=== PATIENT | male | born 1935 | race Asian ===

== ENCOUNTER 2016-11-25 07:35 | Outpatient (CLI) | payer MEDICARE, MEDICAID | END 2016-11-25 07:36 | disposition home or self-care (01) | LOC: LAB.WCP 07:35 | PROVIDERS: ATTEND Family Medicine | DX: R94.5 Abnormal results of liver function studies (principal) | CPT/HCPCS: 36415; 81599; 86317; 86704; 86803; 87340 ==

== ENCOUNTER 2016-12-06 16:52 | Emergency (ER) | payer OTHER, MEDICARE, MEDICAID ==
[2016-12-06] MEDS ORDERED: ACETAMINOPHEN 325 MG TABLET PO ONE (17:27)
[2016-12-06] MEDS ORDERED: ACETAMINOPHEN 325 MG TABLET PO STA (17:27)
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
--- NOTE | 2016-12-06 18:19 | XRAY Preliminary Report ---
Exam: XR Lumbar Spine 2 View IMPRESSION: No acute fracture or dislocation. Multilevel bulky anterior osteophytes, most likely due to DISH. [facility] SITE ID: [id number]
--- NOTE | 2016-12-06 18:21 | XRAY Preliminary Report ---
Exam: XR Thoracic Spine 2 View IMPRESSION: No acute fracture or dislocation. Multilevel anterior bridging osteophytes, most suggesti ve of DISH. [facility] SITE ID: [id number]
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
[2016-12-06 18:33] VITALS: BP 156/79
== END 2016-12-06 18:33 | disposition home or self-care (01) ==
LOC: ED 16:52
DX: S39.012A Strain of muscle, fascia and tendon of lower back, initial encounter (principal); V43.62XA Car passenger injured in collision with other type car in traffic accident, initial encounter; Y92.411 Interstate highway as the place of occurrence of the external cause; R03.0 Elevated blood-pressure reading, without diagnosis of hypertension; M10.9 Gout, unspecified
CPT/HCPCS: 72070; 72100; 99283; A9270

== ENCOUNTER 2017-02-10 09:45 | Outpatient (CLI) | payer MEDICARE, MEDICAID ==
[2017-02-10 12:59] LABS: BASOPHILS # (AUTO) 0.1 10^3/uL (0.0-0.1); BASOPHILS % (AUTO) 0.9 %; EOSINOPHILS # (AUTO) 0.3 10^3/uL (0.0-0.7); EOSINOPHILS % (AUTO) 5.3 %; HCT - HEMATOCRIT 42.3 % (42.0-52.0); HGB - HEMOGLOBIN 14.2 g/dL (14.0-18.0); LYMPHOCYTES # (AUTO) 2.4 10^3/uL (1.5-3.5); LYMPHOCYTES % (AUTO) 37.2 %; MEAN CORPUSCULAR HGB CONC 33.6 g/dL (32.0-36.0); MEAN CORPUSCULAR VOLUME 104.1 fL (80.0-94.0); MEAN PLATELET VOLUME 10.4 fL (7.4-11.4); MONOCYTES # (AUTO) 0.8 10^3/uL (0.0-1.0); NEUTROPHILS # (AUTO) 2.8 10^3/uL (1.5-6.6); NEUTROPHILS % (AUTO) 43.6 %; NUCLEATED RED BLOOD CELLS AUTO 0.1 /100WBC; RED BLOOD COUNT 4.07 10^6/uL (4.70-6.10); RED CELL DISTRIBUTION WIDTH 14.3 % (12.0-15.0); UNCORRECTED WHITE BLOOD COUNT 6.3 x10^3/uL; WHITE BLOOD COUNT 6.3 x10^3/uL (4.8-10.8)
[2017-02-10 13:24] LABS: ALBUMIN/GLOBULIN RATIO 1.1 (1.0-2.2); CALCIUM 9.7 mg/dL (8.5-10.3); CREATININE 1.6 mg/dL (0.6-1.2); POTASSIUM 4.1 mmol/L (3.5-5.0); URIC ACID 5.7 mg/dL (2.6-7.2)
== END 2017-02-10 09:46 | disposition home or self-care (01) ==
LOC: LAB.WCP 09:45
PROVIDERS: ATTEND Family Medicine
DX: D69.6 Thrombocytopenia, unspecified (principal); N18.3 Chronic kidney disease, stage 3 (moderate); R94.5 Abnormal results of liver function studies; L40.50 Arthropathic psoriasis, unspecified; M25.561 Pain in right knee
CPT/HCPCS: 36415; 80053; 84550; 85025

== ENCOUNTER 2017-02-19 07:33 | Outpatient (CLI) | payer MEDICARE, MEDICAID ==
--- NOTE | 2017-02-19 11:23 | Ultrasound Report ---
RIGHT UPPER QUADRANT ULTRASOUND: 02/19/2017 CLINICAL INDICATION: Abnormal liver enzymes. TECHNIQUE: Real-time scanning was performed with sales development representative static images obtained. FINDINGS: The liver measures 16.4 cm. Hepatic echogenicity is diffusely increased, compatible with fatty infiltration. No focal parenchymal abnormality or intrahepatic biliary dilatation is seen. Th e gallbladder demonstrates multiple small stones and sludge within its lumen. The common bile duct m easures 4 mm. The right kidney measures 10.5 cm, and demonstrates cysts. No hydronephrosis is prese nt. No free fluid is seen. IMPRESSION: FATTY INFILTRATION OF THE LIVER. CHOLELITHIASIS, WITHOUT EVIDENCE OF BILIARY OBSTRUCTIO N. JOB #: [id number] EXT JOB #:[id number]
== END 2017-02-19 07:34 | disposition home or self-care (01) ==
LOC: DI 07:33
PROVIDERS: ATTEND Family Medicine
DX: K76.0 Fatty (change of) liver, not elsewhere classified (principal); K80.20 Calculus of gallbladder without cholecystitis without obstruction
CPT/HCPCS: 76705

== ENCOUNTER 2017-09-24 02:35 | Outpatient (CLI) | payer MEDICARE, MEDICAID | END 2017-09-24 02:36 | disposition critical access hospital (66) | LOC: EMS 02:35 | PROVIDERS: ATTEND Surgery | DX: R53.1 Weakness (principal) | CPT/HCPCS: A0425; A0427 ==

== ENCOUNTER 2017-09-24 02:53 | Inpatient (IN) | payer MEDICARE, MEDICAID ==
--- NOTE | 2017-09-24 03:01 | ED Physician Documentation ---
PD HPI FOCAL NEURO - Stated complaint Stated Complaint: STROKE LIKE SYMPTOMS - Chief complaint Chief Complaint: Neuro - History obtained from History obtained from: Patient, Family, EMS - History of Present Illness Timing - onset: Enter time (01:15), Today Timing - duration: Hours Timing - details: Abrupt onset Severity of deficit: Moderate Weakness: Arm, Hand, Leg, Foot, Left Associated symptoms: No: Headache, Nausea / vomiting, Seizure, Syncope, Fall, Head injury, Chest pain, Neck pain, Back pain, Fever Contributing factors: negative: Anticoagulated, Vascular dz, Atrial fibrillation , Prosthetic heart valve Baseline status: positive: A&OX3, ambulatory, indep Similar symptoms before: Has not had sx before Recently seen: Not recently seen - Additional information Additional information: patient was at home and just finished eating at 1:15 AM when he tried to walk back to his room, up a staircase, and found that he was too weak to walk (left- sided weakness). blood sugar by fingerstick was 139 (by medics) Review of Systems Unable to obtain: Other (limited ROS; timing of testing for probably CVA requires focused HPI/ROS) Cardiac: reports: Reviewed and negative Respiratory: reports: Reviewed and negative GI: reports: Reviewed and negative Neurologic: reports: Focal weakness (LUE and LLE). denies: Generalized weakness , Numbness, Confused, Altered mental status, Headache, Head injury, LOC PD PAST MEDICAL HISTORY - Past Medical History Cardiovascular: None Respiratory: None Neuro: None Endocrine/Autoimmune: None GI: None : None HEENT: None Psych: None Musculoskeletal: Gout Derm: None, Psoriasis - Past Surgical History Past Surgical History: No HEENT: Cataracts - Present Medications Home Medications: Ambulatory Orders Medication Instructions Recorded Confirmed Adalimumab [Humira Pen] 40 mg SQ Q14D 05/11/17 09/24/17 Allopurinol [Allopurinol] 300 mg PO DAILY 05/11/17 09/24/17 - Allergies Allergies/Adverse Reactions: Allergies Allergy/AdvReac Type Severity Reaction Status Date / Time No Known Drug Allergies Allergy Verified 09/24/17 03:00 - Social History Does the pt smoke?: No Smoking Status: Never smoker Does the pt drink ETOH?: Yes Does the pt have substance abuse?: No PD ED PE NORMAL - Vitals Vital signs reviewed: Yes - General General: Alert and oriented X 3, No acute distress, Well developed/nourished - HEENT HEENT: PERRL, EOMI, Moist mucous membranes - Neck Neck: Supple, no meningeal sign - Cardiac Cardiac: RRR - Respiratory Respiratory: No respiratory distress, Clear bilaterally - Abdomen Abdomen: Soft, Non tender - Derm Derm: Normal color, Warm and dry - Extremities Extremities: No edema - Neuro Neuro: Alert and oriented X 3, research chef 2-12 intact PD ED PE EXPANDED - Cardiac Cardiac: Murmur Present (3/6 NATACHA at base, greatest at right 2nd ICS) - Neuro Neuro: Weakness (0/5 LUE and 0/5 LLE strength (flacid)), Dysarthria NIHSS - Level of Consciousness Level of consciousness: (0) Alert, Keenly responsive LOC Questions: (0) Answers both Q's correct LOC Commands: (0) Performs both correctly - Gaze Best Gaze: (0) Normal - Visual Visual: (0) No loss - Facial Palsy Facial Palsy: (0) Normal, symmetrical movement - Motor Arms (both separate) Motor Arm (right): (0) No drift Motor Arm (left): (4) No movement - Motor Legs (both separate) Motor Leg (right): (1) Drift Motor Leg (left): (4) No movement - Limb Ataxia Limb Ataxia: (0) Absent - Sensory Sensory: (1) Akmc-nq-xfutiknh loss (LLE) - Best Language Best Language: (0) No aphasia - Dysarthria Dysarthria: (1) Wxdh-tr-abhashnu dysarthria - Extinction and Inattention (formally neg Extinction and inattention: (0) No abnormality - Total Score/Results Total Score/Result: 11 Results - Vitals Vitals: Vital Signs - 24 hr 09/24/17 09/24/17 09/24/17 02:53 03:24 03:28 Temperature 36.6 C Heart Rate 76 70 Respiratory 18 26 H Rate Blood Pressure 230/90 H 223/98 H 218/93 H O2 Saturation 96 96 09/24/17 09/24/17 09/24/17 03:32 03:43 03:51 Temperature Heart Rate 69 67 Respiratory Rate Blood Pressure 215/90 H 202/101 H 210/90 H O2 Saturation 09/24/17 09/24/17 09/24/17 03:56 04:03 04:10 Temperature Heart Rate 68 69 70 Respiratory Rate Blood Pressure 174/76 H 168/74 H 162/75 H O2 Saturation 09/24/17 09/24/17 09/24/17 04:20 04:30 04:35 Temperature Heart Rate 71 Respiratory Rate Blood Pressure 158/72 H 152/73 H 161/85 H O2 Saturation 09/24/17 09/24/17 09/24/17 04:49 05:01 05:28 Temperature Heart Rate 75 73 67 Respiratory 18 Rate Blood Pressure 186/89 H 166/78 H 167/89 H O2 Saturation 96 09/24/17 09/24/17 09/24/17 05:42 06:15 06:45 Temperature Heart Rate 67 68 Respiratory 18 Rate Blood Pressure 170/92 H 187/91 H 197/94 H O2 Saturation 97 Oxygen O2 Source Room air - EKG (time done) No standard instances Rate: Rate (enter#) (74) Rhythm: NSR [place]: Normal Intervals: Normal [place] QRS: Normal Ischemia: Normal ST segments - Labs Labs: Laboratory Tests 09/24/17 09/24/17 09/24/17 02:50 02:50 02:50 WBC 7.1 RBC 3.96 L Hgb 14.0 Hct 40.6 L MCV 102.6 H MCH 35.5 H MCHC 34.6 RDW 13.4 Plt Count 92 L MPV 9.3 Neut # 3.2 Lymph # 2.7 [place] # 0.9 Eos # 0.3 Baso # 0.0 Absolute Nucleated RBC 0.01 Nucleated RBC % 0.1 PT 10.8 INR 1.0 APTT 30.4 Sodium 135 Potassium 3.5 Chloride 101 Carbon Dioxide 23 Anion Gap 11.0 BUN 25 H Creatinine 1.6 H Estimated GFR (MDRD) 41 L Glucose 174 H Calcium 9.6 Troponin I 09/24/17 02:50 WBC RBC Hgb Hct MCV MCH MCHC RDW Plt Count MPV Neut # Lymph # [place] # Eos # Baso # Absolute Nucleated RBC Nucleated RBC % PT INR APTT Sodium Potassium Chloride Carbon Dioxide Anion Gap BUN Creatinine Estimated GFR (MDRD) Glucose Calcium Troponin I < 0.04 - Rads (name of study) CT head Radiology: Prelim report reviewed, See rad report CTA head Radiology: Prelim report reviewed, See rad report PD MEDICAL DECISION MAKING - ED course Complexity details: reviewed results, re-evaluated patient, considered differential, d/w patient, d/w family ED course: telest[facility] he recommends tPA, risks and benefits were discussed with patient and family ( present at bedside). Initially, SBP was too high for tPA but after labetalol followed by nicardipine, blood pressure was within parameters for tPA (SBP<180 and DBP<105), and thus it was given. As per recommendations from Dr. Tucker, CTA was then obtained. I discussed results of CTA with him, and he says that the findings on CTA would not indicate procedural intervention, and his recommendation was to admit to [facility]. He is aware tPA was given, but he says this is not an indication for transfer and again reiterates patient is appropriate for admission to [facility]. He recommends atorvastatin 80mg, aspirin to be started in 24 hours (approximately 3:30 AM on 09/25), TTE, carotid study ( dopplers would be adequate), and maintain SBP<180 and DBP< 105, and after 24 hours maintain SBP<160. D/W Dr. Sandoval, accepts patient to [facility]. Subsequent to tPA, patient had significant improvement in his symptoms, and was able to move LLE and LUE (although still noticeably weak, but varies from 2/5 to 3/5 strength) - Critical Care Time(min): 90 Time Includes: Direct patient care, Review records, Reassess patient, Document care, Coordinate care, Medical consult, Family consult for tx dec, See progress note Data interpretation: Labs, Pulse ox, See progress note Procedures included in critical care time: See progress note Procedures excluded from critical care time: See progress note - TPA CVA checklist Inclusion crititeria: positive: Sig neuro deficit, CT no bleed, Onset know < 4.5 hr Absolute contraindications: negative: SBP>185 DBP>110 s/p tx (as per above, SBP was initially >185 but this was controlled with medications as noted), CT shows bleed, CT shows major est CVA, Platelets <100K, PTT > 40, INR >1.7, Known bleeding disorder, Surgery/trauma < 15 days, Seizure at onset, Internal bleed < 22 days, Brain/spine surg < 3 m, Head trauma < 3 m, CVA < 3 months, Any hx ICH, Any hx brain aneurysm, Any hx brain AVM, Any hx brain tumor, Suspect SAH Relative contraindications: negative: Too severe (NIHSS>22), Too mild, Rapid improvement, Glusose <50 >400, Life expectancy < 1 yr, Severe comorbid illness, Bacterial endocarditis, Severe hepatic dz, Severe renal dz, Hemorrhagic eye condition, Septic thrombophlebitis, Infected AV shunt, On coumadin, , Advanced age, Left heart thrombus Absolute contraindications if 3-4.5 hr: positive: Age > 80. negative: Coumadin (any INR), Combo prior CVA & DM Departure - Departure Disposition: [facility] DC/Xfer Clinical Impression: Cerebrovascular accident (CVA) Condition: Stable Discharge Date/Time: 09/24/17 07:25
[2017-09-24] MEDS ORDERED: LABETALOL 20 MG/4 ML SYRINGE IVP STA ×3 (03:24→06:51)
--- NOTE | 2017-09-24 03:26 | CT Report ---
EXAM: CT HEAD EXAM DATE: 09/24/2017 03:15 AM. CLINICAL HISTORY: Left-sided weakness. COMPARISON: Head CT 09/05/2015. TECHNIQUE: Multiaxial CT images were obtained from the foramen magnum to the vertex. Reformats: Coron al. IV contrast: None. In accordance with CT protocol optimization, one or more of the following dose reduction techniques w ere utilized for this exam: automated exposure control, adjustment of mA and/or KV based on patient s ize, or use of iterative reconstructive technique. FINDINGS: Parenchyma: No intraparenchymal hemorrhage. No evidence of mass, midline shift, or CT findings of inf arction. There are areas of low-density involving white matter bilateral cerebral hemispheres. Murphy-w eliseo differentiation is distinct. Extraaxial Spaces: Diffuse prominence of sulci. No subdural or epidural collections identified. Ventricles: Mild enlargement of ventricles. No mass effect. No midline shift. Sinuses and Orbits: There is mild pansinus mucosal thickening. No sinus fluid levels. Orbits are unre markable. Bones: No evidence of fracture or calvarial defect. Other: None. IMPRESSION: 1. No CT evidence of acute intracranial process. 2. 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 Mild diffuse volume loss. [facility] The call report notification system was initiated by Dr. Bernabe Osborn at 03:20 hrs on 09/24/17. The above findings were discussed with Dr. Guevara by Dr. Bernabe Osborn at 03:25 hrs on 09/24/17. Referring Provider Line: [phone] SITE ID: [id number]
[2017-09-24 03:29] LABS: BASOPHILS % (AUTO) 0.3 %; EOSINOPHILS # (AUTO) 0.3 10^3/uL (0.0-0.7); EOSINOPHILS % (AUTO) 4.7 %; LYMPHOCYTES # (AUTO) 2.7 10^3/uL (1.5-3.5); LYMPHOCYTES % (AUTO) 37.7 %; MEAN CORPUSCULAR HEMOGLOBIN 35.5 pg (27.0-31.0); MEAN CORPUSCULAR HGB CONC 34.6 g/dL (32.0-36.0); MEAN CORPUSCULAR VOLUME 102.6 fL (80.0-94.0); MEAN PLATELET VOLUME 9.3 fL (7.4-11.4); MONOCYTES # (AUTO) 0.9 10^3/uL (0.0-1.0); MONOCYTES % (AUTO) 12.3 %; NEUTROPHILS # (AUTO) 3.2 10^3/uL (1.5-6.6); PLT - PLATELET COUNT 92 10^3/uL (130-450); RED BLOOD COUNT 3.96 10^6/uL (4.70-6.10); RED CELL DISTRIBUTION WIDTH 13.4 % (12.0-15.0); WHITE BLOOD COUNT 7.1 x10^3/uL (4.8-10.8)
[2017-09-24] MEDS ORDERED: ALTEPLASE IV STA ×2 (03:30→05:06)
[2017-09-24] MEDS ORDERED: WATER FOR INJECTION STERILE IV STA ×2 (03:30→05:06)
[2017-09-24 03:34] LABS: CALCIUM 9.6 mg/dL (8.5-10.3); CREATININE 1.6 mg/dL (0.6-1.2)
[2017-09-24 03:35] LABS: PT - PROTHROMBIN TIME 10.8 secs (9.9-12.6)
[2017-09-24] MEDS ORDERED: LABETALOL 20 MG/4 ML SYRINGE IVP ONE (03:35)
[2017-09-24] MEDS ORDERED: niCARdipine 20 MG/200 ML 20 MG/200 ML BAG IV STA (03:46)
[2017-09-24] MEDS ORDERED: ALTEPLASE 100 MG VIAL ONE (03:47)
[2017-09-24] MEDS ORDERED: IOPAMIDOL-300 100 ML VIAL ONE (04:27)
[2017-09-24] MEDS ORDERED: IOPAMIDOL-300 100 ML VIAL IVP ONE ×2 (04:30→04:48)
--- NOTE | 2017-09-24 05:15 | CT Preliminary Report ---
Exam: CT HEAD ANGIO IMPRESSION: CT Head: No acute intracranial abnormality. No abnormal enhancement. 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 Intracranial vessels otherwise normal in caliber. [facility] SITE ID: [id number]
--- NOTE | 2017-09-24 05:15 | CT Report ---
EXAM: CT ANGIOGRAM HEAD. CT SCAN OF THE HEAD WITHOUT AND WITH CONTRAST. EXAM DATE: 09/24/2017 04:52 AM CLINICAL HISTORY: CVA, left-sided weakness. COMPARISON: None. TECHNIQUE: - CT Scan Head: Using a multidetector scanner, axial images were acquired from the foramen magnum to the skull vertex prior to and following contrast administration. - CT Angiogram: Using a multidetector scanner, high-resolution axial images were acquired from the sk ull base through vertex following rapid infusion of intravenous contrast. Reformats: Multiplanar MIP reformats were reconstructed. Nascet criteria used for stenosis measurement. IV Contrast: 60 cc Isovue-300. In accordance with CT protocol optimization, one or more of the following dose reduction techniques w ere utilized for this exam: automated exposure control, adjustment of mA and/or KV based on patient s ize, or use of iterative reconstructive technique. FINDINGS: NON-CONTRAST HEAD: Parenchyma: No intraparenchymal hemorrhage. No evidence of mass, midline shift, or CT findings of inf arction. There is of low-density involving white matter of the cerebral hemispheres. Murphy-white diffe rentiation is distinct. Extraaxial Spaces: Mild diffuse prominence. No subdural or epidural collections identified. Ventricles: Mild ventriculomegaly. No mass effect. Other: None. POST-CONTRAST HEAD: No abnormal enhancement. CT ANGIOGRAM HEAD: RIGHT: Internal Carotid artery: No evidence of dissection. No evidence of aneurysm along the intracranial IC A. Anterior Cerebral Artery: Patent without significant stenosis, aneurysm, or vascular malformation. Middle Cerebral Artery: Patent without significant stenosis, aneurysm, or vascular malformation. Posterior Cerebral Artery: Patent without significant stenosis, aneurysm, or vascular malformation. Posterior Communicating Artery: Patent. No aneurysm. Vertebral Artery: Not visualized at the dural ring. Relatively small. Second band of severe stenosis distally. LEFT: Internal Carotid artery: No evidence of dissection. No evidence of aneurysm along the intracranial IC A. Anterior Cerebral Artery: Patent without significant stenosis, aneurysm, or vascular malformation. Middle Cerebral Artery: Patent without significant stenosis, aneurysm, or vascular malformation. Posterior Cerebral Artery: There is severe stenosis of left P2 TECHNICAL SERVICES SPECIALIST segment (series 7, images 114 thro ugh 122) Posterior Communicating Artery: Patent. No aneurysm. Vertebral Artery: Patent without significant stenosis. No evidence of dissection. CENTRAL: Anterior Communicating Artery: Patent. No aneurysm. Basilar Artery: Patent without significant stenosis. No aneurysm. DURAL VENOUS SINUSES AND MAJOR CENTRAL VEINS: Patent. IMPRESSION: CT Head: No acute intracranial abnormality. No abnormal enhancement. 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 Severe stenosis of left TECHNICAL SERVICES SPECIALIST. Intracranial vessels otherwise normal in caliber. [facility] Referring Provider Line: [phone] SITE ID: [id number]
--- NOTE | 2017-09-24 06:30 | HISTORY & PHYSICAL EXAMINATION ---
Chief Complaint - Chief Complaint Chief Complaint: Left sided weakness History of Present Illness - Admitted From Admitted From:: Home - History Obtained From History obtained from: Son, ER physician Exam Limitations: Pt's Mongolian is very limited; son provides translation - History of Present Illness HPI Comment/Other: Mr Dea Degroot is an 82 -year-old gentleman who woke up around 1 AM this morning to go get something to eat or drink. On his way back to bed he stumbled and almost fell. A couple of hours later he woke up and realized that he could not move the left side of his body and called his son who lives in the home with him. His son called EMS who brought the patient to formerly [facility] emergency department where it was found that he had a right-sided CVA. [facility] telemetry neuro was consulted and the patient was given TPA which has actually allowed him to move the left side of his body albeit somewhat limited range of motion. The neurologist at [facility] feels that the patient may now be safely followed up here at [facility], so the patient will be admitted to a medical bed. History - Past Medical History Cardiovascular: reports: None Respiratory: reports: None Neuro: reports: None Endocrine/Autoimmune: reports: None GI: reports: None : reports: None HEENT: reports: None Psych: reports: None Musculoskeletal: reports: Gout Derm: reports: None, Psoriasis MRSA Hx?: No - Past Surgical History HEENT: reports: Cataracts - Family & Social History Family History: Mother: (Parents from old age according to their grandson), Father: Family History Comment/Other: The patient's son states that there is no family history of hypertension, hypercholesterolemia, CVA, cancer, diabetes mellitus, myocardial infarction, or any other health issues that he is aware of. He says that the patient's parents of old age, and the one other family member who has that he is aware of in an accident. Living arrangement: At home Living Situation: With spouse/s.o., With family - Substance History Use: Uses substance without health or social issues: Alcohol (Patient had a drink of alcohol yesterday for the first time in 3 months. There is no history of abuse.) - POLST Patient has POLST: No POLST Status: Full Code Meds/Allgy - Home Medications Home Medications: Ambulatory Orders Medication Instructions Recorded Confirmed Adalimumab [Humira Pen] 40 mg SQ Q14D 05/11/17 08/31/17 Allopurinol [Allopurinol] 1 tab PO DAILY 05/11/17 08/31/17 - Allergies Allergies/Adverse Reactions: Allergies Allergy/AdvReac Type Severity Reaction Status Date / Time No Known Drug Allergies Allergy Verified 09/24/17 03:00 Review of Systems - Constitutional Constitutional: denies: Fatigue, Fever, Chills, Malaise - Eyes Eyes: denies: Pain, Irritation, Amaurosis, Blurred vision - Ears, Nose & Throat Ears, Nose & Throat: reports: Hearing loss. denies: Ear pain, Hearing aids, Tinnitus, Vertigo, Nasal pain, Nasal discharge, Nosebleeds - Cardiovascular Cariovascular: denies: Irregular heart rate, Palpitations, Chest pain, Edema, Syncope - Respiratory Respiratory: denies: Cough, Sputum production, Wheezing, Snoring - Gastrointestinal Gastrointestinal: denies: Abdominal pain, Abdominal distention, Constipation, Diarrhea, Change in bowel habits, Rectal bleeding - Genitourinary Genitourinary: denies: Dysuria, Frequency, Urgency, Hematuria - Musculoskeletal Musculoskeletal: reports: Muscle weakness. denies: Muscle pain, Back pain, Muscle aches, Stiffness - Integumentary Integumentary: denies: Rash, Pruritis, Lesions, Dryness - Neurological Neurological: reports: Focal weakness, Headache, Slurred speech. denies: Dizziness, Numbness - Psychiatric Psychiatric: denies: Depression, Anxiety, Suicidal, Delusions, Hallucinations - Endocrine Endocrine: denies: Polyuria, Polydypsia, Polyphagia - Hematologic/Lymphatic Hematologic/Lymphatic: denies: Anemia, Bruising, Petechiae, Lymphadenopathy - All Other Systems All Other Systems: reports: Reviewed and negative Exam - Vital Signs Reviewed Vital Signs: Yes Vital Signs: Vital Signs x48h Temp Pulse Resp BP Pulse Ox 09/24/17 05:42 67 18 170/92 H 97 09/24/17 05:28 67 18 167/89 H 96 09/24/17 05:01 73 166/78 H 09/24/17 04:49 75 186/89 H 09/24/17 04:35 71 161/85 H 09/24/17 04:30 152/73 H 09/24/17 04:20 158/72 H 09/24/17 04:10 70 162/75 H 09/24/17 04:03 69 168/74 H 09/24/17 03:56 68 174/76 H 09/24/17 03:51 210/90 H 09/24/17 03:43 67 202/101 H 09/24/17 03:32 69 215/90 H 09/24/17 03:28 218/93 H 09/24/17 03:24 70 26 H 223/98 H 96 09/24/17 02:53 36.6 C 76 18 230/90 H 96 - Physical Exam General Appearance: positive: No acute distress, Alert Eyes Bilateral: positive: Normal inspection, PERRL, EOMI, No lid inflammation, Conjunctivae nml, No scleral icterus ENT: positive: ENT inspection nml, Pharynx nml, No signs of dehydration Neck: positive: Nml inspection, Thyroid nml, No JVD, Trachea midline. negative : Thyromegaly Cardiovascular: positive: Regular rate & rhythm, No murmur, No gallop Peripheral Pulses: positive: 1+ Abdomen: positive: Non-tender, No organomegaly, Nml bowel sounds, No distention. negative: Guarding, Rebound Back: positive: Nml inspection. negative: CVA tenderness (R), CVA tenderness (L ) Skin: positive: Color nml, No rash, Warm, Dry. negative: Cyanosis Extremities: positive: Non-tender, Full ROM, Nml appearance, No pedal edema Neurologic/Psychiatric: positive: Oriented x3, Weakness (L sided, 3/5). 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 He has responded well to the TPA, and is now moving his left side, although his movement is still somewhat impaired. We will admit him to an inpatient bed for a follow-up carotid ultrasound, transthoracic echocardiogram, and MRI of his brain. If he worsens we will transfer him out to [facility]. Qualifiers: CVA mechanism: unspecified Qualified Code(s): I63.9 - Cerebral infarction, unspecified (2) Gout Conclusion/Plan: Controlled, no acute episode at this time. Continue allopurinol. (3) Psoriasis Conclusion/Plan: Controlled, continue Humira. - Lab Results Lab results reviewed: Yes Fish Bones: 09/24/17 02:50 09/24/17 02:50 - Diagnostic Imaging Results Diagnostic Imaging Results: positive: Final report reviewed Diagnostic Imaging Results Comments: EXAM: CT HEAD EXAM DATE: 09/24/2017 03:15 AM. CLINICAL HISTORY: Left-sided weakness. COMPARISON: Head CT 09/05/2015. TECHNIQUE: Multiaxial CT images were obtained from the foramen magnum to the vertex. Reformats: Coronal. IV contrast: None. In accordance with CT protocol optimization, one or more of the following dose reduction techniques were utilized for this exam: automated exposure control, adjustment of mA and/or KV based on patient size, or use of iterative reconstructive technique. FINDINGS: Parenchyma: No intraparenchymal hemorrhage. No evidence of mass, midline shift, or CT findings of infarction. There are areas of low-density involving white matter bilateral cerebral hemispheres. Murphy-white differentiation is distinct. Extraaxial Spaces: Diffuse prominence of sulci. No subdural or epidural collections identified. Ventricles: Mild enlargement of ventricles. No mass effect. No midline shift. Sinuses and Orbits: There is mild pansinus mucosal thickening. No sinus fluid levels. Orbits are unremarkable. Bones: No evidence of fracture or calvarial defect. Other: None. IMPRESSION: 1. No CT evidence of acute intracranial process. 2. 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 Mild diffuse volume loss. EXAM: CT ANGIOGRAM HEAD. CT SCAN OF THE HEAD WITHOUT AND WITH CONTRAST. EXAM DATE: 09/24/2017 04:52 AM CLINICAL HISTORY: CVA, left-sided weakness. COMPARISON: None. TECHNIQUE: - CT Scan Head: Using a multidetector scanner, axial images were acquired from the foramen magnum to the skull vertex prior to and following contrast administration. - CT Angiogram: Using a multidetector scanner, high-resolution axial images were acquired from the skull base through vertex following rapid infusion of intravenous contrast. Reformats: Multiplanar MIP reformats were reconstructed. Nascet criteria used for stenosis measurement. IV Contrast: 60 cc Isovue-300. In accordance with CT protocol optimization, one or more of the following dose reduction techniques were utilized for this exam: automated exposure control, adjustment of mA and/or KV based on patient size, or use of iterative reconstructive technique. FINDINGS: NON-CONTRAST HEAD: Parenchyma: No intraparenchymal hemorrhage. No evidence of mass, midline shift, or CT findings of infarction. There is of low-density involving white matter of the cerebral hemispheres. Murphy-white differentiation is distinct. Extraaxial Spaces: Mild diffuse prominence. No subdural or epidural collections identified. Ventricles: Mild ventriculomegaly. No mass effect. Other: None. POST-CONTRAST HEAD: No abnormal enhancement. CT ANGIOGRAM HEAD: RIGHT: Internal Carotid artery: No evidence of dissection. No evidence of aneurysm along the intracranial ICA. Anterior Cerebral Artery: Patent without significant stenosis, aneurysm, or vascular malformation. Middle Cerebral Artery: Patent without significant stenosis, aneurysm, or vascular malformation. Posterior Cerebral Artery: Patent without significant stenosis, aneurysm, or vascular malformation. Posterior Communicating Artery: Patent. No aneurysm. Vertebral Artery: Not visualized at the dural ring. Relatively small. Second band of severe stenosis distally. LEFT: Internal Carotid artery: No evidence of dissection. No evidence of aneurysm along the intracranial ICA. Anterior Cerebral Artery: Patent without significant stenosis, aneurysm, or vascular malformation. Middle Cerebral Artery: Patent without significant stenosis, aneurysm, or vascular malformation. Posterior Cerebral Artery: There is severe stenosis of left P2 BUS PERSON DISHWASHER segment ( series 7, images 114 through 122) Posterior Communicating Artery: Patent. No aneurysm. Vertebral Artery: Patent without significant stenosis. No evidence of dissection. CENTRAL: Anterior Communicating Artery: Patent. No aneurysm. Basilar Artery: Patent without significant stenosis. No aneurysm. DURAL VENOUS SINUSES AND MAJOR CENTRAL VEINS: Patent. IMPRESSION: CT Head: No acute intracranial abnormality. No abnormal enhancement. 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 Intracranial vessels otherwise normal in caliber. Core Measures - Anticipated LOS I expect patient to be DC'd or transferred within 96 hours.: Yes - DVT/VTE - Prophylaxis VTE/DVT Device ordered at admit?: Yes - Stroke - Rehab Assessment Rehab services assessment to be ordered?: Yes
[2017-09-24] MEDS ORDERED: ACETAMINOPHEN 325 MG TABLET PO PRN (06:49)
[2017-09-24] MEDS ORDERED: oxyCODONE 5 MG TABLET PO PRN (06:49)
[2017-09-24] MEDS ORDERED: PROCHLORPERAZINE 10 MG/2 ML VIAL IVP PRN (06:49)
[2017-09-24] MEDS ORDERED: TEMAZEPAM 15 MG CAPSULE PO PRN (06:49)
[2017-09-24 08:16] LABS: CHOL/HDL RATIO 6.1 (<5.0); CHOLESTEROL 280 mg/dL; HDL CHOLESTEROL 46 mg/dL; LDL CHOLESTEROL,CALCULATED 164 mg/dL; LDL/HDL RATIO 3.6 (<3.6); VLDL CHOLESTEROL 70 mg/dL
[2017-09-24] MEDS ORDERED: ACETAMINOPHEN 1,000 MG/100 ML 100 ML IV PRN (10:26)
[2017-09-24] MEDS: SODIUM CHLORIDE FLUSH 0.9% 10 ML SYRINGE IVP SCH ×2 (10:57→17:25)
[2017-09-24] MEDS: SODIUM CHLORIDE FLUSH 0.9% 10 ML SYRINGE IVP PRN ×3 (11:24→23:43)
[2017-09-24 12:11] LABS: ALBUMIN 3.6 g/dL (3.2-5.5); ALBUMIN/GLOBULIN RATIO 0.9 (1.0-2.2); CALCIUM 8.9 mg/dL (8.5-10.3); CREATININE 1.4 mg/dL (0.6-1.2); MAGNESIUM 1.8 mg/dL (1.7-2.8); TOTAL PROTEIN 7.5 g/dL (6.7-8.2)
--- NOTE | 2017-09-24 14:01 | Ultrasound Report ---
CAROTID DUPLEX: 09/24/2017 CLINICAL INDICATION: Stroke. TECHNIQUE: Real-time sonographic vascular imaging was performed by the safety instruction police officer through the carotid arteries utilizing both color-flow and Doppler spectral analysis. Multiple delivery representative static images were saved for review. RIGHT Vessel PSV cm/sec EDV cm/sec ICA/CCA RSV Ratio Degree of Stenosis Plaque Estimate % RCCA Prox 77 -- -- RCCA Dist 77 9.2 -- RECA 80.1 -- -- RT BULB 51 10 0.66 CAIT Prox 65.5 17 0.85 CAIT Mid 53 17 0.68 CAIT Dist 69 15 0.89 RVA not seen -- -- RVA flow direction: Antegrade LEFT Vessel PSV cm/sec EDV cm/sec ICA/CCA RSV Ratio Degree of Stenosis Plaque Estimate % LCCA Prox 82 -- -- LCCA Dist 63 7 -- LECA 100 -- -- LFT BULB 50 15 0.79 LICA Prox 52 15 0.82 LICA Mid 56 10 0.89 LICA Dist 64 17 1.01 LVA 75 -- -- LVA flow direction: Antegrade Velocity criteria are extrapolated from diameter data as defined by the Society of Radiologists in Ultrasound Consensus Conference Radiology 2003; 229; 340-346. Degree of Stenosis % ICA PSV cm/sec ICA EDV cm/sec ICA/CCA PSV Ratio Plaque Estimate % Normal < 125 < 40 < 2.0 None <50 < 125 < 40 < 2.0 < 50 50-69 125-130 40-100 2.0-4.0 >/=50 >/=70 but less than near occlusion > 230 > 100 > 4.0 >/=50 Near occlusion High, low or undetectable Variable Variable Visible Total occlusion Undetectable Not applicable Not applicable No detectable lumen FINDINGS RIGHT: There is mild plaque in the right carotid bifurcation, without evidence of a focal hemodynamically significant stenosis. LEFT: There is mild plaque in the left carotid bifurcation, without evidence of a focal hemodynamically significant stenosis. The left vertebral artery demonstrates antegrade flow. No definite flow was visualized in the right vertebral artery. IMPRESSION: MILD PLAQUE BILATERALLY, WITHOUT EVIDENCE OF A FOCAL HEMODYNAMICALLY SIGNIFICANT CAROTID STENOSIS. NO VISUALIZED FLOW IN THE RIGHT VERTEBRAL ARTERY. TD: 09/24/2017 10:15 [facility]
[2017-09-24] MEDS ORDERED: GADOBUTROL 10 MMOL/10 ML SYRINGE ONE (14:25)
[2017-09-24] MEDS ORDERED: GADOBUTROL 10 MMOL/10 ML SYRINGE IVP ONE (15:07)
[2017-09-24] MEDS ORDERED: ATORVASTATIN 40 MG TABLET PO SCH (16:00)
--- NOTE | 2017-09-24 16:16 | MRI Report ---
EXAM: MRI BRAIN WITHOUT AND WITH CONTRAST EXAM DATE: 09/24/2017 03:31 PM. CLINICAL HISTORY: Sudden onset left-sided weakness and slurred speech COMPARISON: CTA head 09/24/2017 TECHNIQUE: Multiplanar, multisequence T1-weighted and fluid-sensitive MR sequences of the brain were performed. Sequences optimized for routine evaluation. Other: None. IV Contrast: Yes. 6 mL Gadavist FINDINGS: Brain Volume: Moderate diffuse cerebral volume loss with ex vacuo dilatation of the ventricles and agosto lci, appropriate for age. Parenchyma: There is a 11 mm right paramedian focus of restricted diffusion and associated FLAIR sign al abnormality within the right medulla (series 505 image 32) as well as a 9 mm focus of restricted d iffusion and mild FLAIR signal abnormality within the posterior right cerebellar hemisphere (series 5 05 image 40). Both foci likely represent acute infarctions, less than one week old. No evidence of he morrhagic transformation. Overall, no evidence of acute intracranial hemorrhage Moderate T2/FLAIR hyp erintense periventricular, deep, and subcortical white matter lesions within cerebral hemispheres chrissy aterally. A punctate chronic parenchymal microhemorrhage seen within right basal ganglia. No abnormal intracranial enhancement. Ventricles/Cisterns: No hydrocephalus. No abnormal extra-axial fluid collection or hemorrhage. Orbits: Status post bilateral lens replacement surgery. Sella Turcica: The pituitary gland, cavernous sinuses, suprasellar cistern and optic chiasm are unrem arkable. IAC: Symmetric and unremarkable. Vasculature: Normal signal flow void is seen in the major arterial structures at the skull base. The dural sinuses are patent and enhance normally, however the left transverse sinus is hypoplastic.. Sinuses: Mild mucosal thickening bilateral maxillary sinuses. The remaining paranasal sinuses are aicha ar. The mastoid air cells are clear. Bones: No focal pathologic appearing marrow signal changes. Other: None. IMPRESSION: 1. A 11 mm focus of restricted diffusion and associated FLAIR signal abnormality within the right par amedian medulla (series 505 image 32) as well as a 9 mm focus of restricted diffusion and mild FLAIR signal abnormality within the posterior right cerebellar hemisphere (series 505 image 40). Both foci likely represent acute infarctions, less than one week old. No evidence of hemorrhagic transformation . Overall, no evidence of acute intracranial hemorrhage 2. Moderate T2/FLAIR hyperintense periventricular, deep, and subcortical white matter lesions within cerebral hemispheres bilaterally. While nonspecific, these are favored to represent sequela of chroni c microangiopathy. The ordering provider was paged at the time of this dictation. [facility] Referring Provider Line: [phone] SITE ID: [id number]
--- NOTE | 2017-09-24 16:23 | MRI Report ---
EXAM MRA BRAIN EXAM DATE: 09/24/2017 02:30 PM. CLINICAL HISTORY: Acute CV, got tPA.. COMPARISON: CTA head 09/24/2017 TECHNIQUE: Multiplanar, multisequence MRA sequences of the brain were performed. Other: None. Post-pr ocessing: Multiplanar 3D MIP reconstructions. IV Contrast: None. FINDINGS: RIGHT Internal Carotid (ICA): Moderate atherosclerosis right carotid siphon to maximal stenosis 30-40 %. Middle Cerebral (MCA): No aneurysm, stenosis or anomaly. Anterior Cerebral (SHAYNA): No aneurysm, stenosis or anomaly. Posterior Cerebral (PAINT STRIPING MACHINE OPERATOR): No aneurysm, stenosis or anomaly. Posterior Communicating (P-COM): No aneurysm, stenosis or anomaly. Vertebral: As demonstrated on the prior CTA, this MRA demonstrates no flow-related enhancement within the right vertebral artery, concerning for total/near total occlusion. LEFT Internal Carotid (ICA): Moderate atherosclerosis left carotid siphon, maximal stenosis 40-50%. Middle Cerebral (MCA): Redemonstration approximately 20-30% narrowing proximal M2 segment left MCA (s eries 401 image 103) Anterior Cerebral (SHAYNA): No aneurysm, stenosis or anomaly. Posterior Cerebral (PAINT STRIPING MACHINE OPERATOR): Redemonstration severe stenosis P3 segment left PAINT STRIPING MACHINE OPERATOR (for example series 401 image 118), likely greater than 70% stenosis, with normal flow related enhancement more distally. Posterior Communicating (P-COM): No aneurysm, stenosis or anomaly. Vertebral: No aneurysm, stenosis or anomaly in the visualized upper vertebral artery. MIDLINE Anterior Communicating (A-COM): No aneurysm, stenosis or anomaly. Basilar Artery:No aneurysm, stenosis or anomaly. Other: None. IMPRESSION: 1. As demonstrated on the prior CTA, this MRA demonstrates no flow-related enhancement within the rig ht vertebral artery, concerning for total/near total occlusion. 2. Redemonstration severe stenosis P3 segment left PAINT STRIPING MACHINE OPERATOR (for example series 401 image 118), likely gre ater than 70% stenosis, with normal flow related enhancement more distally. 3. Redemonstration approximately 20-30% narrowing proximal M2 segment left MCA (series 401 image 103) 4. Moderate atherosclerosis right carotid siphon to maximal stenosis 30-40 %. 5. Moderate atherosclerosis left carotid siphon, maximal stenosis 40-50%. [facility] Referring Provider Line: [phone] SITE ID: [id number]
[2017-09-24] MEDS: ALLOPURINOL 100 MG TABLET PO SCH (17:19)
[2017-09-24] MEDS: POLYETHYLENE GLYCOL 3350 17 GM PACKET PO SCH (17:24)
[2017-09-24] MEDS: FAMOTIDINE 20 MG TABLET PO SCH (17:24)
[2017-09-24] MEDS: GEMFIBROZIL 600 MG TABLET PO SCH (19:05)
[2017-09-24] MEDS: ATORVASTATIN 40 MG TABLET PO SCH (21:07)
[2017-09-24] MEDS ORDERED: diltiaZEM 30 MG TABLET PO PRN (23:07)
[2017-09-25] MEDS: SODIUM CHLORIDE FLUSH 0.9% 10 ML SYRINGE IVP SCH ×3 (02:34→19:00)
[2017-09-25 05:17] LABS: BASOPHILS % (AUTO) 0.5 %; EOSINOPHILS # (AUTO) 0.3 10^3/uL (0.0-0.7); EOSINOPHILS % (AUTO) 3.9 %; HGB - HEMOGLOBIN 13.3 g/dL (14.0-18.0); LYMPHOCYTES # (AUTO) 2.6 10^3/uL (1.5-3.5); LYMPHOCYTES % (AUTO) 32.7 %; MEAN CORPUSCULAR HEMOGLOBIN 34.5 pg (27.0-31.0); MEAN CORPUSCULAR HGB CONC 33.6 g/dL (32.0-36.0); MEAN CORPUSCULAR VOLUME 102.5 fL (80.0-94.0); MEAN PLATELET VOLUME 9.7 fL (7.4-11.4); MONOCYTES # (AUTO) 1.1 10^3/uL (0.0-1.0); MONOCYTES % (AUTO) 14.1 %; NEUTROPHILS # (AUTO) 3.9 10^3/uL (1.5-6.6); NEUTROPHILS % (AUTO) 48.8 %; PLT - PLATELET COUNT 104 10^3/uL (130-450); RED BLOOD COUNT 3.87 10^6/uL (4.70-6.10); RED CELL DISTRIBUTION WIDTH 13.2 % (12.0-15.0)
[2017-09-25 08:17] LABS: CREATININE 1.5 mg/dL (0.6-1.2)
[2017-09-25] MEDS: FAMOTIDINE 20 MG TABLET PO SCH (08:24)
[2017-09-25] MEDS: ASPIRIN EC 325 MG TABLET PO SCH (08:24)
[2017-09-25] MEDS: GEMFIBROZIL 600 MG TABLET PO SCH ×2 (08:24→16:06)
[2017-09-25] MEDS: ALLOPURINOL 100 MG TABLET PO SCH (08:24)
[2017-09-25] MEDS: POLYETHYLENE GLYCOL 3350 17 GM PACKET PO SCH (08:30)
--- NOTE | 2017-09-25 17:15 | PROVIDER PROGRESS NOTE ---
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 Advance activity. ASA to start today. Poss DCh tomorrow and will need outpt stroke rehab. 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 Pt needs better cholesterol and BP control. (3) Hyperlipidemia Qualifiers: Hyperlipidemia type: mixed hyperlipidemia Qualified Code(s): E78.2 - Mixed hyperlipidemia Assessment/Plan: Pt on a statin. I reviewed with the son the foods that should be eliminated/dereased to help with LDL control. He translated to his father. The patient eats alot of pork. Nutrition consult ordered for diet education. (4) Hypertriglyceridemia Assessment/Plan: Pt started on Lopid yesterday. I reviewed with the son the foods that should be omitted/decreased to help Triglyceride control. He translated to the Pt. Pt eats alot of bread and also potatoes as his main starches. Nutrition consult ordered for education. (5) Hypertension Qualifiers: Hypertension type: unspecified Qualified Code(s): I10 - Essential (primary ) hypertension Assessment/Plan: Will allow permissive HTN in first 5-7 days of CVA, then he needs to achieve better BP control. (6) CKD (chronic kidney disease) stage 3, GFR 30-59 ml/min Assessment/Plan: This may be the cause of HTN. Continue present plan, avoid nephrotoxic meds. - Current Meds Current Meds: Current Medications Generic Name Dose Route Start Last Admin Trade Name Freq PRN Reason Stop Dose Admin Allopurinol 300 mg 09/24/17 09:00 09/25/17 08:24 Zyloprim PO 300 mg DAILY GAUTAM Administration Aspirin 325 mg 09/25/17 08:00 09/25/17 08:24 Ecotrin PO 325 mg DAILY GAUTAM Administration Atorvastatin Calcium 20 mg 09/24/17 22:00 09/24/17 21:07 Lipitor PO 20 mg QPM GAUTAM Administration Diltiazem HCl 30 mg 09/24/17 23:07 09/24/17 23:43 Cardizem PO 30 mg Q6HR PRN Administration SBP greater than 160 Famotidine 20 mg 09/24/17 09:00 09/25/17 08:24 Pepcid PO 20 mg DAILY GAUTAM Administration Gemfibrozil 600 mg 09/24/17 19:00 09/25/17 16:06 Lopid PO 600 mg BIDAC GAUTAM Administration Acetaminophen 100 mls @ 400 mls/hr 09/24/17 10:26 09/24/17 11:12 Ofirmev IV Infused Q6HR PRN Infusion PAIN Polyethylene Glycol 17 gm 09/24/17 09:00 09/25/17 08:30 Miralax PO 17 gm DAILY GAUTAM Administration Sodium Chloride 10 ml 09/24/17 06:49 09/24/17 23:43 Normal Saline Flush 0.9% IVP 10 ml PRN PRN Administration NEEDED PER PROVIDER ORDERS Sodium Chloride 10 ml 09/24/17 09:00 09/25/17 08:30 Normal Saline Flush 0.9% IVP 10 ml 0100,0900,1700 GAUTAM Administration - Lab Result Fish Bone Diagrams: 09/25/17 04:43 09/25/17 04:43 - Additional Planning My Orders: My Active Orders 09/24/17 19:00 Gemfibrozil [Lopid] 600 mg PO BIDAC 09/24/17 22:00 Atorvastatin [Lipitor] 20 mg PO QPM 09/25/17 08:00 Aspirin EC [Ecotrin] 325 mg PO DAILY 09/25/17 Breakfast Dysphagia Mechanically Altered Diet [DIET] 09/26/17 05:00 BMP, RFLX TO IONIZED CA IF [CHEM] DAILYLAB Subjective - Subjective Patient Reports: Feeling Better, Resting Comfortably Nursing Reports: Other (Strength in L arm and leg have improved. Pt was able to walk in room for the first time since admission, with front-wheel walker, with PT.) Objective Vital Signs: Vital Signs - 24 hr 09/24/17 09/24/17 09/24/17 19:20 20:00 20:57 Temperature 36.7 C 36.9 C Heart Rate [ 68 65 Monitoring electrodes] Heart Rate [ Supine] Respiratory 18 20 Rate Respiratory Rate [With Activity] Blood Pressure Blood Pressure 178/87 H 161/79 H [Left Brachial artery] Blood Pressure [Right Brachial artery] Blood Pressure [Supine] O2 Saturation 95 O2 Saturation [ With Activity] 09/24/17 09/24/17 09/24/17 21:30 22:00 23:11 Temperature 36.7 C Heart Rate [ 73 70 69 Monitoring electrodes] Heart Rate [ Supine] Respiratory 20 26 H 23 Rate Respiratory Rate [With Activity] Blood Pressure Blood Pressure 179/91 H 181/88 H 178/85 H [Left Brachial artery] Blood Pressure [Right Brachial artery] Blood Pressure [Supine] O2 Saturation 95 94 O2 Saturation [ With Activity] 09/24/17 09/25/17 09/25/17 23:43 00:00 01:00 Temperature Heart Rate [ 67 72 Monitoring electrodes] Heart Rate [ Supine] Respiratory 25 H 22 Rate Respiratory Rate [With Activity] Blood Pressure 178/85 H 137/70 H Blood Pressure 163/76 H 137/70 H [Left Brachial artery] Blood Pressure [Right Brachial artery] Blood Pressure [Supine] O2 Saturation O2 Saturation [ With Activity] 09/25/17 09/25/17 09/25/17 02:00 06:00 07:56 Temperature 36.8 C 36.8 C Heart Rate [ 68 67 66 Monitoring electrodes] Heart Rate [ Supine] Respiratory 25 H 21 24 Rate Respiratory Rate [With Activity] Blood Pressure Blood Pressure 133/76 H 160/72 H 159/86 H [Left Brachial artery] Blood Pressure [Right Brachial artery] Blood Pressure [Supine] O2 Saturation 96 O2 Saturation [ With Activity] 09/25/17 09/25/17 09/25/17 12:00 12:20 16:00 Temperature 98.1 C H Heart Rate [ 72 65 Monitoring electrodes] Heart Rate [ 92 Supine] Respiratory 18 23 Rate Respiratory 17 Rate [With Activity] Blood Pressure Blood Pressure [Left Brachial artery] Blood Pressure 165/80 H 145/99 H [Right Brachial artery] Blood Pressure 135/71 H [Supine] O2 Saturation 96 96 O2 Saturation [ 92 With Activity] Oxygen O2 Source [With Activity] Room air O2 Source Room air I&O (Last 24 Hrs): Intake and Output Totals x24h 09/23/17 09/24/17 09/25/17 23:59 23:59 23:59 Intake Total 600 820 Output Total 150 Balance 600 670 General: Alert, Oriented x3 HEENT: Mucous membr. moist/pink Neck: Supple, No JVD Neuro: Alert, Focal Deficits (L arm and L leg strength is now 4/5 (yesterday they were 2/5)) Cardiovascular: Regular rate, No murmurs Respiratory: Breath sounds nml Abdomen: Soft, Other (Obese) Extremities: No edema - Results Results: Laboratory Results WBC 8.0 x10^3/uL (4.8-10.8) 09/25/17 04:43 RBC 3.87 10^6/uL (4.70-6.10) L 09/25/17 04:43 Hgb 13.3 g/dL (14.0-18.0) L 09/25/17 04:43 Hct 39.7 % (42.0-52.0) L 09/25/17 04:43 MCV 102.5 fL (80.0-94.0) H 09/25/17 04:43 MCH 34.5 pg (27.0-31.0) H 09/25/17 04:43 MCHC 33.6 g/dL (32.0-36.0) 09/25/17 04:43 RDW 13.2 % (12.0-15.0) 09/25/17 04:43 Plt Count 104 10^3/uL (130-450) L 09/25/17 04:43 MPV 9.7 fL (7.4-11.4) 09/25/17 04:43 Neut # 3.9 10^3/uL (1.5-6.6) 09/25/17 04:43 Lymph # 2.6 10^3/uL (1.5-3.5) 09/25/17 04:43 [place] # 1.1 10^3/uL (0.0-1.0) H 09/25/17 04:43 Eos # 0.3 10^3/uL (0.0-0.7) 09/25/17 04:43 Baso # 0.0 10^3/uL (0.0-0.1) 09/25/17 04:43 Absolute Nucleated RBC 0.01 x10^3/uL 09/25/17 04:43 Nucleated RBC % 0.1 /100WBC 09/25/17 04:43 PT 10.8 secs (9.9-12.6) 09/24/17 02:50 INR 1.0 (0.8-1.2) 09/24/17 02:50 APTT 30.4 secs (24.9-33.3) 09/24/17 02:50 Sodium 136 mmol/L (135-145) 09/25/17 04:43 Potassium 4.1 mmol/L (3.5-5.0) 09/25/17 04:43 Chloride 104 mmol/L (101-111) 09/25/17 04:43 Carbon Dioxide 23 mmol/L (21-32) 09/25/17 04:43 Anion Gap 9.0 (6-13) 09/25/17 04:43 BUN 24 mg/dL (6-20) H 09/25/17 04:43 Creatinine 1.5 mg/dL (0.6-1.2) H 09/25/17 04:43 Estimated GFR (MDRD) 45 (>89) L 09/25/17 04:43 Glucose 134 mg/dL (70-100) H 09/25/17 04:43 Calcium 9.0 mg/dL (8.5-10.3) 09/25/17 04:43 Magnesium 1.8 mg/dL (1.7-2.8) 09/24/17 11:55 Total Bilirubin 1.0 mg/dL (0.2-1.0) 09/24/17 11:55 AST 55 IU/L (10-42) H 09/24/17 11:55 ALT 52 IU/L (10-60) 09/24/17 11:55 Alkaline Phosphatase 53 IU/L (42-121) 09/24/17 11:55 Troponin I < 0.04 ng/mL (<0.49) 09/24/17 02:50 Total Protein 7.5 g/dL (6.7-8.2) 09/24/17 11:55 Albumin 3.6 g/dL (3.2-5.5) 09/24/17 11:55 Globulin 3.9 g/dL (2.1-4.2) 09/24/17 11:55 Albumin/Globulin Ratio 0.9 (1.0-2.2) L 09/24/17 11:55 Triglycerides 351 mg/dL (-149) H 09/24/17 02:50 Cholesterol 280 mg/dL (-199) H 09/24/17 02:50 LDL Cholesterol, Calc 164 mg/dL (-129) H 09/24/17 02:50 VLDL Cholesterol 70 mg/dL 09/24/17 02:50 HDL Cholesterol 46 mg/dL (60-) L 09/24/17 02:50 LDL/HDL Ratio 3.6 (<3.6) 09/24/17 02:50 Cholesterol/HDL Ratio 6.1 (<5.0) 09/24/17 02:50 Vitamin B12 613 pg/mL (180-914) 09/25/17 04:43 Folate 34.00 ng/mL (5.90 - >24.8) 09/25/17 04:43 - Procedures Procedures: Procedures DRAINAGE OF RIGHT KNEE JOINT, PERCUTANEOUS APPROACH, DIAGN (12/30/15)
[2017-09-25] MEDS: ATORVASTATIN 40 MG TABLET PO SCH (21:52)
[2017-09-26 06:03] LABS: BUN - BLOOD UREA NITROGEN 26 mg/dL (6-20); CALCIUM 9.1 mg/dL (8.5-10.3); CARBON DIOXIDE - CO2 24 mmol/L (21-32); CHLORIDE 102 mmol/L (101-111); CREATININE 1.6 mg/dL (0.6-1.2); GFR - MDRD 41 (>89); GLUCOSE 130 mg/dL (70-100); SODIUM 136 mmol/L (135-145)
[2017-09-26] MEDS: GEMFIBROZIL 600 MG TABLET PO SCH (06:33)
[2017-09-26] MEDS: SODIUM CHLORIDE FLUSH 0.9% 10 ML SYRINGE IVP PRN ×2 (06:33→06:39)
[2017-09-26] MEDS: SODIUM CHLORIDE FLUSH 0.9% 10 ML SYRINGE IVP SCH ×2 (06:33→09:58)
[2017-09-26] MEDS: POLYETHYLENE GLYCOL 3350 17 GM PACKET PO SCH (09:56)
[2017-09-26] MEDS: ASPIRIN EC 325 MG TABLET PO SCH (09:56)
[2017-09-26] MEDS: FAMOTIDINE 20 MG TABLET PO SCH (09:56)
[2017-09-26] MEDS: ALLOPURINOL 100 MG TABLET PO SCH (09:56)
--- NOTE | 2017-09-26 11:14 | Discharge Plan ---
Discharge Plan Disposition: Home, Self Care Condition: Stable Prescriptions: Aspirin EC [Ecotrin] 325 mg PO DAILY #30 tablet Atorvastatin [Lipitor] 20 mg PO QPM #15 tablet Gemfibrozil [Lopid] 600 mg PO BIDAC #60 tablet Diet: Cardiac Activity Restrictions: Activity as Tolerated Shower Restrictions: No Driving Restrictions: Yes (No driving til cleared by your doctor) Assistance Devices: Walker Weight Bearing: Full Weight Instruction Topics: Atorvastatin tablets, Gemfibrozil tablets, Meds Cholesterol , Stroke Sx, Stroke Ischemic Additional Instructions or Follow Up instructions: Take the medications as prescribed on the list. There are several new ones and resume all your pre-hospital medications. Adjust your diet: less beef and pork, less bread and potatoes. You need outpatient Physical Therapy and Occupational Therapy. You can do these at the facility of your choice. An order has been provided for you to bring in when you start. See your Primary Care Provider in 7-10 days in follow-up. You may need a referral to see a Neurologist too. You will need blood tests for follow-up on these new medications. Follow-Up Care: Outpatient Rehab - PT, Outpatient Rehab - OT No Smoking: If you smoke, Please STOP! Call for help.
[2017-09-26 13:16] VITALS: BP 179/69
--- NOTE | 2017-10-28 19:01 | DISCHARGE SUMMARY ---
Physician: Elina Edge MD DATE OF ADMISSION: 09/24/2017 DATE OF DISCHARGE: 09/26/2017 HISTORY OF PRESENT ILLNESS: This is an 82-year-old male of [place] descent who speaks little Burmese. The son was present for all interpretations. Patient presented with acute onset of left-sided weakness, noticed that he could not walk, and was brought to the emergency room. Patient was found to have a right-sided CVA. [facility] Neurology was consulted, and patient was a candidate for and received TPA. There was some improvement in the left side of his body motion. The neurologist at [facility] felt that patient could be admitted here at [facility] for testing such as an echo, and therefore, he was admitted to a medical bed. HOSPITAL COURSE AND DISCHARGE DIAGNOSES 1. Cerebral infarction, due to unspecified occlusion or stenosis of the right vertebral artery. Patient's imaging of the brain was significant for the following: An MRA demonstrated no flow in the right vertebral artery, concerning for total/near total occlusion. Severe stenosis of the P3 segment of the left SITE SUPERVISOR likely greater than 70% stenosis with normal flow more distally. 20%-30% narrowing of the proximal M2 segment of the left MCA. Moderate atherosclerosis of the right carotid siphon at 30%-40%. Moderate atherosclerosis of the left carotid siphon at 40%-50%. The patient had appropriate permissive hypertension. Aspirin was started 24 hours after his TPA. An echo was done to look for a cardiac source of embolus and this showed normal LVEF of 65%-70%, grade 1 diastolic dysfunction, normal RV size and function, mild mitral regurgitation and tricuspid regurgitation with PA pressure 34 mmHg and no intracardiac shunt or intracardiac clot was seen. Patient started physical therapy while here. He was advised at discharge to have outpatient PT and OT and to have a neurologist for followup. 2. Peripheral vascular disease. Atherosclerosis was seen as demonstrated above in the SITE SUPERVISOR, MCA and carotid. Management of his blood pressure and lipids were advised. 3. Chronic kidney disease. Patient's admission creatinine was 1.6, which fluctuated between 1.4 and 1.6 throughout this admission. Followup with his PCP was advised for this. 4. Hyperlipidemia, mixed. Patient's blood tests showed triglycerides of 351, LDL 164, HDL of 46. His statin was continued and he was placed on Lopid. Liver function tests need to be followed on this combination, as well as followup lipid labs. 5. Hypertriglyceridemia. New Lopid was begun, and patient was advised to decrease his starch intake. 6. Gouty arthritis. His allopurinol was continued. 7. DM. Meds and a diabetic diet were continued. ALLERGIES: NONE. MEDICATIONS AT THE TIME OF DISCHARGE 1. Allopurinol 300 mg daily. 2. Humira pen 4000 mg every 14 days. 3. Adult dose aspirin daily. 4. Lipitor 20 mg every p.m. 5. Lopid 600 mg b.i.d. CODE STATUS: FULL CODE. PHYSICAL EXAMINATION AT DISCHARGE VITAL SIGNS: Blood pressure 179/69, pulse of 70, in sinus rhythm, afebrile, oxygen saturation 97%. HEENT: Unremarkable. NECK: Without JVD or carotid bruits. CHEST: Clear. HEART: Sounds normal. ABDOMEN: Soft with positive bowel sounds. EXTREMITIES: No edema. NEUROLOGIC: Mild left arm and leg weakness, otherwise grossly normal. FOLLOWUP: With his PCP and advised to have a neurology followup. Also, outpatient PT and OT were ordered. Time required to complete this entire discharge, dictation, coordination of care , review of labs and results: 45 minutes. TD: 10/28/2017 19:00 SANDRA
== END 2017-09-26 13:00 | disposition home or self-care (01) | DRG 65 ==
LOC: EDUNIT# → ED 02:53 → ICU 06:49 → MS3 09-25 16:31
PROVIDERS: ADMIT Hospitalist; ATTEND Internal Medicine
DX: I63.9 Cerebral infarction, unspecified (principal); G81.04 Flaccid hemiplegia affecting left nondominant side; R47.1 Dysarthria and anarthria; R29.711 NIHSS score 11; I63.211 Cerebral infarction due to unspecified occlusion or stenosis of right vertebral artery; G81.94 Hemiplegia, unspecified affecting left nondominant side; I66.22 Occlusion and stenosis of left posterior cerebral artery; I67.2 Cerebral atherosclerosis; E78.2 Mixed hyperlipidemia; E78.1 Pure hyperglyceridemia; I12.9 Hypertensive chronic kidney disease with stage 1 through stage 4 chronic kidney disease, or unspecified chronic kidney disease; N18.3 Chronic kidney disease, stage 3 (moderate); M10.9 Gout, unspecified; L40.9 Psoriasis, unspecified; Z79.899 Other long term (current) drug therapy
CPT/HCPCS: 36415; 37195; 70450; 70496; 70544; 70553; 80048; 80053; 80061; 82607; 82746; 83721; 83735; 84484; 85025; 85610; 85730; 87150; 93005; 93306; 93880; 96365; 96366; 96375; 99285; 99291; 99292

== ENCOUNTER 2018-02-11 07:54 | Outpatient (CLI) | payer MEDICARE, MEDICAID ==
[2018-02-11 12:45] LABS: BASOPHILS # (AUTO) 0.1 10^3/uL (0.0-0.1); BASOPHILS % (AUTO) 0.7 %; EOSINOPHILS # (AUTO) 0.4 10^3/uL (0.0-0.7); EOSINOPHILS % (AUTO) 6.4 %; HGB - HEMOGLOBIN 12.6 g/dL (14.0-18.0); LYMPHOCYTES # (AUTO) 3.3 10^3/uL (1.5-3.5); MEAN CORPUSCULAR HEMOGLOBIN 35.6 pg (27.0-31.0); MEAN CORPUSCULAR HGB CONC 33.9 g/dL (32.0-36.0); MEAN CORPUSCULAR VOLUME 105.1 fL (80.0-94.0); MONOCYTES # (AUTO) 0.9 10^3/uL (0.0-1.0); MONOCYTES % (AUTO) 12.4 %; NEUTROPHILS # (AUTO) 2.3 10^3/uL (1.5-6.6); NEUTROPHILS % (AUTO) 33.5 %; PLT - PLATELET COUNT 109 10^3/uL (130-450); RED BLOOD COUNT 3.55 10^6/uL (4.70-6.10); RED CELL DISTRIBUTION WIDTH 13.8 % (12.0-15.0)
[2018-02-11 13:01] LABS: HB2 TOTAL 13.3 g/dL; HEMOGLOBIN A1C 0.6 g/dL; HEMOGLOBIN A1C % 6.3 % (4.6-6.2)
[2018-02-11 13:25] LABS: ALBUMIN 4.2 g/dL (3.2-5.5); ALBUMIN/GLOBULIN RATIO 0.9 (1.0-2.2); ALKALINE PHOSPHATASE 69 IU/L (42-121); ALT ALANINE AMINOTRANSFERASE 42 IU/L (10-60); AST ASPARTATE AMINOTRANSFERASE 58 IU/L (10-42); BILIRUBIN,TOTAL 0.9 mg/dL (0.2-1.0); BUN - BLOOD UREA NITROGEN 33 mg/dL (6-20); CALCIUM 9.6 mg/dL (8.5-10.3); CARBON DIOXIDE - CO2 25 mmol/L (21-32); CHLORIDE 105 mmol/L (101-111); CHOL/HDL RATIO 5.1 (<5.0); CHOLESTEROL 182 mg/dL; CREATININE 1.8 mg/dL (0.6-1.2); GFR - MDRD 36 (>89); GLUCOSE 133 mg/dL (70-100); HDL CHOLESTEROL 36 mg/dL; LDL CHOLESTEROL,CALCULATED 109 mg/dL; SODIUM 138 mmol/L (135-145); TOTAL PROTEIN 8.7 g/dL (6.7-8.2); VLDL CHOLESTEROL 37 mg/dL
== END 2018-02-11 07:55 | disposition home or self-care (01) ==
LOC: LAB.WCP 07:54
PROVIDERS: ATTEND Family Medicine
DX: E78.5 Hyperlipidemia, unspecified (principal); R73.01 Impaired fasting glucose; D69.6 Thrombocytopenia, unspecified
CPT/HCPCS: 36415; 80053; 80061; 83036; 83721; 85025

== ENCOUNTER 2018-11-18 20:18 | Outpatient (CLI) | payer MEDICARE, MEDICAID | END 2018-11-18 20:19 | disposition critical access hospital (66) | LOC: EMS 20:18 | PROVIDERS: ATTEND Surgery | DX: R53.1 Weakness (principal); R05 Cough; R68.83 Chills (without fever) | CPT/HCPCS: A0425; A0429 ==

== ENCOUNTER 2018-11-18 20:36 | Observation (INO) | payer MEDICARE, MEDICAID ==
--- NOTE | 2018-11-18 21:42 | ED Physician Documentation ---
History of Present Illness - Stated complaint Stated Complaint: WEAK - Chief complaint Chief Complaint: General - History obtained from History obtained from: Patient, Family - History of Present Illness Timing: Today Pain level max: 0 Pain level now: 0 Improved by: nothing Worsened by: exertion Associated symptoms: weakness, cough, dyspnea - Additonal information Additional information: increasing wet cough x few days. Since this morning, patient has had increasing generalized weakness and tonight family found patient was unable to stand up, which is not his baseline, and thus family called 911. He was found by EMS to have fever of 102.5. He has had shaking chills earlier this evening. Review of Systems Constitutional: reports: Fever, Chills, Fatigue Eyes: reports: Reviewed and negative Ears: reports: Reviewed and negative Nose: reports: Reviewed and negative Throat: reports: Reviewed and negative Cardiac: reports: Reviewed and negative Respiratory: reports: Dyspnea, Cough. denies: Wheezing GI: reports: Reviewed and negative : reports: Frequency. denies: Dysuria Skin: reports: Reviewed and negative Musculoskeletal: reports: Reviewed and negative Neurologic: reports: Generalized weakness. denies: Focal weakness, Numbness, Altered mental status, Headache PD PAST MEDICAL HISTORY - Past Medical History Past Medical History: Yes Cardiovascular: None Respiratory: None Neuro: None Endocrine/Autoimmune: None GI: None : None HEENT: None Psych: None Musculoskeletal: Gout Derm: None, Psoriasis Other Past Medical History: neuropathy - Past Surgical History Past Surgical History: No HEENT: Cataracts - Present Medications Home Medications: Ambulatory Orders Medication Instructions Recorded Confirmed Adalimumab [Humira Pen] 40 mg SQ Q14D 05/11/17 11/18/18 Allopurinol 300 mg PO DAILY 05/11/17 11/18/18 Aspirin EC [Ecotrin] 325 mg PO DAILY #30 tablet 09/26/17 11/18/18 Meclizine [Antivert] 1 tab ORAL PRN 11/18/18 - Allergies Allergies/Adverse Reactions: Allergies Allergy/AdvReac Type Severity Reaction Status Date / Time No Known Drug Allergies Allergy Verified 11/18/18 20:55 - Social History Does the pt smoke?: No Smoking Status: Former smoker Does the pt drink ETOH?: Yes ETOH Use: Beer Does the pt have substance abuse?: No - Immunizations Immunizations are current?: Yes Immunizations: TDAP current <10years - POLST Patient has POLST: No POLST Status: Full Code PD ED PE NORMAL - Vitals Vital signs reviewed: Yes - General General: Alert and oriented X 3, No acute distress (NAD at rest but becomes dyspneic with sitting up (for lung exam)), Well developed/nourished - HEENT HEENT: PERRL, EOMI, Moist mucous membranes - Neck Neck: Supple, no meningeal sign - Cardiac Cardiac: RRR - Respiratory Respiratory: No respiratory distress - Abdomen Abdomen: Soft, Non tender, Non distended - Back Back: No CVA TTP - Derm Derm: Normal color, Warm and dry - Extremities Extremities: No edema PD ED PE EXPANDED - Cardiac Cardiac: Murmur Present (2/6 NATACHA greatest at left 2nd ICS) - Respiratory Respiratory: Rhonchi (course rhonchi bilaterally) Results - Vitals Vitals: Vital Signs - 24 hr 11/18/18 11/18/18 11/18/18 20:37 21:38 22:59 Temperature 37.8 C H 37.6 C H Heart Rate 83 77 73 Respiratory 18 18 25 H Rate Blood Pressure 183/75 H 161/77 H 152/80 H O2 Saturation 93 93 94 11/19/18 00:05 Temperature Heart Rate 67 Respiratory 17 Rate Blood Pressure 145/69 H O2 Saturation 94 Oxygen O2 Source [With Activity] Room air O2 Source Room air - Labs Labs: Laboratory Tests 11/18/18 11/18/18 11/18/18 22:12 22:12 22:12 WBC 12.8 H RBC 3.62 L Hgb 12.8 L Hct 37.6 L MCV 104.1 H MCH 35.4 H MCHC 34.0 RDW 14.5 Plt Count 100 L MPV 9.8 Neut # (Auto) 9.7 H Lymph # (Auto) 1.7 Jewell # (Auto) 1.2 H Eos # (Auto) 0.1 Baso # (Auto) 0.0 Absolute Nucleated RBC 0.01 Nucleated RBC % 0.0 Sodium 134 L Potassium 4.0 Chloride 101 Carbon Dioxide 23 Anion Gap 10.0 BUN 24 H Creatinine 2.0 H Estimated GFR (MDRD) 32 L Glucose 211 H Lactic Acid Calcium 8.8 Total Bilirubin 0.9 AST 39 ALT 36 Alkaline Phosphatase 62 B-Natriuretic Peptide 117 H Total Protein 7.2 Albumin 3.1 L Globulin 4.1 Albumin/Globulin Ratio 0.8 L Lipase 66 H Urine Color Urine Clarity Urine pH Ur Specific Adamant Urine Protein Urine Glucose (UA) Urine Ketones Urine Occult Blood Urine Nitrite Urine Bilirubin Urine Urobilinogen Ur Leukocyte Esterase Urine RBC Urine WBC Ur Squamous Epith Cells Urine Bacteria Urine Casts Ur Microscopic Review Urine Culture Comments 11/18/18 11/18/18 22:12 22:50 WBC RBC Hgb Hct MCV MCH MCHC RDW Plt Count MPV Neut # (Auto) Lymph # (Auto) Jewell # (Auto) Eos # (Auto) Baso # (Auto) Absolute Nucleated RBC Nucleated RBC % Sodium Potassium Chloride Carbon Dioxide Anion Gap BUN Creatinine Estimated GFR (MDRD) Glucose Lactic Acid 2.4 H Calcium Total Bilirubin AST ALT Alkaline Phosphatase B-Natriuretic Peptide Total Protein Albumin Globulin Albumin/Globulin Ratio Lipase Urine Color YELLOW Urine Clarity CLEAR Urine pH 6.0 Ur Specific Adamant 1.015 Urine Protein 100 H Urine Glucose (UA) 250 H Urine Ketones NEGATIVE Urine Occult Blood TRACE-INTA Urine Nitrite NEGATIVE Urine Bilirubin NEGATIVE Urine Urobilinogen 0.2 (NORMAL) Ur Leukocyte Esterase NEGATIVE Urine RBC None Seen Urine WBC 0-3 Ur Squamous Epith Cells RARE Squamous Urine Bacteria None Seen Urine Casts 0-2 Hyaline Casts Ur Microscopic Review INDICATED Urine Culture Comments NOT INDICATED - Rads (name of study) chest xray Radiology: Prelim report reviewed, See rad report PD MEDICAL DECISION MAKING - ED course Complexity details: reviewed results, re-evaluated patient, considered differential, d/w patient, d/w family Departure - Departure Disposition: ED Place in Observation Clinical Impression: Weakness, Respiratory infection Condition: Stable Discharge Date/Time: 11/19/18 01:08
[2018-11-18 22:39] LABS: BASOPHILS % (AUTO) 0.3 %; EOSINOPHILS # (AUTO) 0.1 10^3/uL (0.0-0.7); HGB - HEMOGLOBIN 12.8 g/dL (14.0-18.0); LYMPHOCYTES # (AUTO) 1.7 10^3/uL (1.5-3.5); LYMPHOCYTES % (AUTO) 13.2 %; MEAN CORPUSCULAR HEMOGLOBIN 35.4 pg (27.0-31.0); MEAN CORPUSCULAR VOLUME 104.1 fL (80.0-94.0); MEAN PLATELET VOLUME 9.8 fL (7.4-11.4); MONOCYTES # (AUTO) 1.2 10^3/uL (0.0-1.0); MONOCYTES % (AUTO) 9.7 %; NEUTROPHILS # (AUTO) 9.7 10^3/uL (1.5-6.6); NEUTROPHILS % (AUTO) 75.8 %; PLT - PLATELET COUNT 100 10^3/uL (130-450); RED BLOOD COUNT 3.62 10^6/uL (4.70-6.10); RED CELL DISTRIBUTION WIDTH 14.5 % (12.0-15.0); WHITE BLOOD COUNT 12.8 x10^3/uL (4.8-10.8)
--- NOTE | 2018-11-18 22:46 | XRAY Report ---
Reason: cough Procedure Date: 11/18/2018 Accession Number: [id number] / [id number] Procedure: XR - Chest 2 View X-Ray CPT Code: 88263 FULL RESULT: EXAM: CHEST RADIOGRAPHY EXAM DATE: 11/18/2018 10:18 PM. CLINICAL HISTORY: Cough. COMPARISON: CHEST 2 VIEW PA/LAT 04/16/2017 11:11 AM. TECHNIQUE: 2 views. FINDINGS: Lungs/Pleura: Pulmonary vascular congestion and mild interstitial edema. Trace effusions. No pneumothorax. Mediastinum: Cardiomegaly. Other: None. IMPRESSION: Cardiomegaly, with mild congestive failure. No focal infiltrate. RADIA
[2018-11-18 22:56] LABS: ALBUMIN 3.1 g/dL (3.2-5.5); ALBUMIN/GLOBULIN RATIO 0.8 (1.0-2.2); BILIRUBIN,TOTAL 0.9 mg/dL (0.2-1.0); CALCIUM 8.8 mg/dL (8.5-10.3); TOTAL PROTEIN 7.2 g/dL (6.7-8.2)
[2018-11-18 22:56] LABS: BILIRUBIN,URINE NEGATIVE (NEGATIVE); GLUCOSE, URINE (UA) 250 mg/dL (NEGATIVE); KETONES,URINE (UA) NEGATIVE (NEGATIVE); LEUKOCYTE ESTERASE, URINE NEGATIVE (NEGATIVE); NITRITE,URINE NEGATIVE (NEGATIVE); OCCULT BLOOD,URINE TRACE-INTA (NEGATIVE); PROTEIN,URINE 100 mg/dL (NEGATIVE); UROBILINOGEN,URINE 0.2 (NORMAL) E.U./dL (NORMAL)
[2018-11-18 23:06] LABS: CLARITY,URINE CLEAR (CLEAR)
[2018-11-18] MEDS ORDERED: SODIUM CHLORIDE 0.9% 500 ML IV STA (23:07)
[2018-11-18 23:08] LABS: BACTERIA,URINE None Seen /HPF (None Seen); RBC,URINE None Seen /HPF (0-5); SQUAMOUS EPITHELIAL CELL,UR RARE Squamous (<= Few)
[2018-11-18 23:09] LABS: CASTS, URINE 0-2 Hyaline Casts /LPF
[2018-11-19] MEDS ORDERED: ONDANSETRON ODT 4 MG TABLET TL PRN (00:17)
[2018-11-19] MEDS ORDERED: SODIUM CHLORIDE FLUSH 0.9% 10 ML SYRINGE IVP PRN (00:17)
[2018-11-19] MEDS ORDERED: SODIUM CHLORIDE 0.9% 1,000 ML IV SCH (01:00)
--- NOTE | 2018-11-19 01:00 | HISTORY & PHYSICAL EXAMINATION ---
Chief Complaint - Chief Complaint Chief Complaint: generalized weakness, fever, dyspnea, productive cough History of Present Illness - Admitted From [facility] From:: [facility] ED - History Obtained From Records Reviewed: yes History obtained from: patient's son Exam Limitations: language barrier - History of Present Illness HPI Comment/Other: Patient seen on 11/19/18 at 0010 am Patient is an 83 y/o male who is Phillipino speaking only. He was brought to the ED by family for concern of generalized weakness to the point of being unable to stand. In the ED he was found to have a temp of 102.5F. It is reported that he had been having a productive cough of yellowish sputum for the past 5 days. He sounded rhonchous on exam in the ED. He complained of pleuritic chest pain and abdominal pain with coughing. He had a WBC of 12.8 and lactic acid of 2.4. He is on humira for psoariasis. He is being admitted for further management History - Past Medical History Cardiovascular: reports: None Respiratory: reports: None Neuro: reports: None, CVA Endocrine/Autoimmune: reports: None GI: reports: None : reports: None HEENT: reports: None Psych: reports: None Musculoskeletal: reports: Gout Derm: reports: None, Psoriasis MRSA Hx?: No Other Past Medical History: neuropathy - Past Surgical History HEENT: reports: Cataracts - Family & Social History Family History: Mother: (Parents from old age according to their grandson), Father: Family History Comment/Other: The patient's son states that there is no family history of hypertension, hypercholesterolemia, CVA, cancer, diabetes mellitus, myocardial infarction, or any other health issues that he is aware of. He says that the patient's parents of old age, and the one other family member who has that he is aware of in an accident. Social History Notes: Rare alcohol use. No tobacco or illicit drug use - Substance History Use: Uses substance without health or social issues: Alcohol (Rare alcohol use. There is no history of abuse.) - POLST Patient has POLST: No POLST Status: Full Code Meds/Allgy - Home Medications Home Medications: Ambulatory Orders Medication Instructions Recorded Confirmed Adalimumab [Humira Pen] 40 mg SQ Q14D 05/11/17 11/18/18 Allopurinol 300 mg PO DAILY 05/11/17 11/18/18 Aspirin EC [Ecotrin] 325 mg PO DAILY #30 tablet 09/26/17 11/18/18 Meclizine [Antivert] 1 tab ORAL PRN 11/18/18 - Allergies Allergies/Adverse Reactions: Allergies Allergy/AdvReac Type Severity Reaction Status Date / Time No Known Drug Allergies Allergy Verified 11/18/18 20:55 Review of Systems - Constitutional Constitutional: reports: Fatigue, Fever, Weakness. denies: Diaphoresis - Eyes Eyes: denies: Blurred vision, Vision loss, Dipolpia - Ears, Nose & Throat Ears, Nose & Throat: denies: Vertigo, Nasal pain, Nasal discharge, Sore throat, Hoarseness - Cardiovascular Cariovascular: denies: Irregular heart rate, Palpitations, Chest pain, Lightheadedness, Syncope - Respiratory Respiratory: reports: Cough, Sputum production, Pleuritic pain - Gastrointestinal Gastrointestinal: denies: Abdominal pain, Abdominal distention, Constipation, Diarrhea, Nausea, Vomiting, Coffee grounds emesis, Reflux/heartburn - Integumentary Integumentary: denies: Rash, Pruritis, Lesions - Neurological Neurological: reports: General weakness. denies: Headache, Numbness - Psychiatric Psychiatric: denies: Depression, Anxiety - Endocrine Endocrine: denies: Polyuria, Polydypsia - Hematologic/Lymphatic Hematologic/Lymphatic: denies: Anemia, Bruising, Petechiae Prior Level of Functionality: Lives at home with family Gets around with the aid of a cane Is independent of activities of daily living Exam - Vital Signs Vital Signs: Vital Signs x48h Temp Pulse Resp BP Pulse Ox 11/19/18 00:05 67 17 145/69 H 94 11/18/18 22:59 73 25 H 152/80 H 94 11/18/18 21:38 37.6 C H 77 18 161/77 H 93 11/18/18 20:37 37.8 C H 83 18 183/75 H 93 - Physical Exam General Appearance: positive: No acute distress, Alert. negative: Anxious, Lethargic Eyes Bilateral: positive: Normal inspection, PERRL, EOMI ENT: positive: ENT inspection nml, Pharynx nml Neck: positive: Nml inspection, No JVD, Trachea midline Respiratory: positive: Chest non-tender, No respiratory distress, Rhonchi Cardiovascular: positive: Regular rate & rhythm Abdomen: positive: Non-tender, Nml bowel sounds. negative: Guarding, Rebound Back: positive: Nml inspection Skin: positive: Color nml, No rash, Warm, Dry Extremities: positive: Nml appearance, No pedal edema. negative: Non-tender (tenderness in feet) Conclusion/Plan - Problem List (1) Community acquired pneumonia Conclusion/Plan: Clinically suspected Blood culture drawn Patient started on rocephin and azithromycin Tylenol for fever Qualifiers: Laterality: unspecified laterality Qualified Code(s): J18.9 - Pneumonia, unspecified organism (2) Acute on chronic renal failure Conclusion/Plan: Patient receiving gentle IV hydration Recheck morning labs Qualifiers: Chronic kidney disease stage: stage 3 (moderate) (3) Psoriasis Conclusion/Plan: On humira biweekly Date of last dose unknown Will not continue while treating for possible infection (4) Gout Conclusion/Plan: No acute episode. 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
[2018-11-19] MEDS ORDERED: AZITHROMYCIN INJ 500 MG in SODIUM CHLORIDE 0.9% 250 ML IV STA (01:23)
[2018-11-19] MEDS: SODIUM CHLORIDE FLUSH 0.9% 10 ML SYRINGE IVP SCH ×4 (01:28→23:28)
[2018-11-19] MEDS: cefTRIAXone 1 GM in SODIUM CHLORIDE 0.9% MINIBAG 100 ML IV SCH ×2 (01:48→08:50)
[2018-11-19] MEDS: HEPARIN 5,000 UNIT/ML VIAL SUBQ SCH ×3 (01:52→08:49)
[2018-11-19] MEDS: SODIUM CHLORIDE 0.9% 1,000 ML IV SCH ×2 (01:52→16:46)
[2018-11-19 04:52] LABS: BASOPHILS # (AUTO) 0.1 10^3/uL (0.0-0.1); BASOPHILS % (AUTO) 0.4 %; EOSINOPHILS # (AUTO) 0.1 10^3/uL (0.0-0.7); EOSINOPHILS % (AUTO) 1.1 %; HGB - HEMOGLOBIN 12.6 g/dL (14.0-18.0); LYMPHOCYTES # (AUTO) 3.1 10^3/uL (1.5-3.5); LYMPHOCYTES % (AUTO) 24.3 %; MEAN CORPUSCULAR HEMOGLOBIN 35.3 pg (27.0-31.0); MEAN CORPUSCULAR HGB CONC 33.9 g/dL (32.0-36.0); MEAN CORPUSCULAR VOLUME 103.9 fL (80.0-94.0); MEAN PLATELET VOLUME 9.6 fL (7.4-11.4); MONOCYTES # (AUTO) 1.2 10^3/uL (0.0-1.0); MONOCYTES % (AUTO) 9.7 %; NEUTROPHILS # (AUTO) 8.2 10^3/uL (1.5-6.6); NEUTROPHILS % (AUTO) 64.5 %; PLT - PLATELET COUNT 96 10^3/uL (130-450); RED BLOOD COUNT 3.56 10^6/uL (4.70-6.10); RED CELL DISTRIBUTION WIDTH 14.2 % (12.0-15.0); WHITE BLOOD COUNT 12.7 x10^3/uL (4.8-10.8)
[2018-11-19 04:53] LABS: CALCIUM 8.9 mg/dL (8.5-10.3); CREATININE 1.9 mg/dL (0.6-1.2)
[2018-11-19] MEDS: PANTOPRAZOLE 40 MG TABLET PO SCH (06:25)
[2018-11-19] MEDS: POLYETHYLENE GLYCOL 3350 17 GM PACKET PO SCH (08:49)
[2018-11-19] MEDS: ACETAMINOPHEN 325 MG TABLET PO PRN (08:50)
[2018-11-19] MEDS ORDERED: cefTRIAXone 1 GM in SODIUM CHLORIDE 0.9% MINIBAG 100 ML IV SCH (09:00)
[2018-11-19] MEDS ORDERED: ENOXAPARIN 40 MG/0.4 ML SYRINGE SUBQ SCH (09:00)
[2018-11-19] MEDS ORDERED: AZITHROMYCIN 250 MG TABLET PO SCH (09:00)
[2018-11-20] MEDS: ACETAMINOPHEN 325 MG TABLET PO PRN (00:35)
[2018-11-20] MEDS ORDERED: hydrALAZINE INJ 20 MG/ML VIAL IVP ONE (04:20)
[2018-11-20] MEDS: SODIUM CHLORIDE FLUSH 0.9% 10 ML SYRINGE IVP SCH (04:44)
[2018-11-20 05:26] LABS: BASOPHILS # (AUTO) 0.1 10^3/uL (0.0-0.1); BASOPHILS % (AUTO) 0.6 %; EOSINOPHILS # (AUTO) 0.3 10^3/uL (0.0-0.7); EOSINOPHILS % (AUTO) 3.6 %; HGB - HEMOGLOBIN 12.6 g/dL (14.0-18.0); LYMPHOCYTES # (AUTO) 3.7 10^3/uL (1.5-3.5); LYMPHOCYTES % (AUTO) 43.3 %; MEAN CORPUSCULAR HGB CONC 33.6 g/dL (32.0-36.0); MEAN CORPUSCULAR VOLUME 104.4 fL (80.0-94.0); MEAN PLATELET VOLUME 9.5 fL (7.4-11.4); MONOCYTES # (AUTO) 0.9 10^3/uL (0.0-1.0); MONOCYTES % (AUTO) 10.8 %; NEUTROPHILS # (AUTO) 3.5 10^3/uL (1.5-6.6); NEUTROPHILS % (AUTO) 41.7 %; PLT - PLATELET COUNT 91 10^3/uL (130-450); RED BLOOD COUNT 3.59 10^6/uL (4.70-6.10); RED CELL DISTRIBUTION WIDTH 14.2 % (12.0-15.0); WHITE BLOOD COUNT 8.5 x10^3/uL (4.8-10.8)
[2018-11-20 05:31] LABS: CALCIUM 8.9 mg/dL (8.5-10.3); CREATININE 1.7 mg/dL (0.6-1.2)
[2018-11-20] MEDS: SODIUM CHLORIDE 0.9% 1,000 ML IV SCH (05:43)
[2018-11-20] MEDS: PANTOPRAZOLE 40 MG TABLET PO SCH (05:45)
[2018-11-20 07:57] VITALS: BP 154/68
[2018-11-20] MEDS: cefTRIAXone 1 GM in SODIUM CHLORIDE 0.9% MINIBAG 100 ML IV SCH (08:41)
[2018-11-20] MEDS: POLYETHYLENE GLYCOL 3350 17 GM PACKET PO SCH (08:42)
[2018-11-20] MEDS ORDERED: ENOXAPARIN 40 MG/0.4 ML SYRINGE SUBQ SCH (09:00)
[2018-11-20] MEDS ORDERED: AZITHROMYCIN 250 MG TABLET PO SCH (09:00)
--- NOTE | 2018-11-20 10:18 | Discharge Plan ---
Discharge Plan Disposition: Home, Self Care Condition: Good Prescriptions: Amox/Clav 875/125 [Augmentin 875/125] 1 tab PO BID #10 tablet Azithromycin [Zithromax] 250 mg PO DAILY #5 tablet Saccharomyces Boulardii [Florastor] 250 mg PO BID #60 capsule Diet: Cardiac Activity Restrictions: Activity as Tolerated Shower Restrictions: No Additional Instructions or Follow Up instructions: You were admitted for pneumonia and given IV antibiotics that you will need to continue at home. Your kidney function was lower than usual, which was treated with IV fluids. They have now returned to your normal. Please see your Primary care provider within one week. No Smoking: If you smoke, Please STOP! Call for help. Follow-up with: Vianca Treviño MD [Primary Care Provider] -
--- NOTE | 2018-11-20 10:31 | DISCHARGE SUMMARY ---
Discharge Summary Admit Date: 11/19/18 Discharge Date: 11/20/18 Discharging Provider: SAMIR Oliveira Primary Care Provider: Vianca Treviño Code Status: Attempt Resuscitation Condition at Discharge: Good Discharge Disposition: 01 Home, Self Care - DIAGNOSES Admission Diagnoses: Pneumonia, unspecified organism (J18.9) Acute kidney failure, unspecified (N17.9) Psoriasis, unspecified (L40.9) Gout, unspecified (M10.9) Cerebral infarction, unspecified (I63.9) Discharge Diagnoses with Status of Each Condition: Community acquired pneumonia (J18.9) new on this admit, continue Augmentin/Azithromycin at home x5 days, probiotic for prophylaxis Acute on chronic renal failure (N17.9) improved from a creatinine of 2.0, now 1.7. Status post IV fluids, now stopped Psoriasis (L40.9) Takes Humira at home, chronic, stable Gout (M10.9) chronic, stable CVA (cerebral vascular accident) (I63.9) No new residual, stable Chronic back pain (M54.9) chronic, stable Thrombocytopenia (D69.6) likely due to Humira use - HPI History of Present Illness: HPI per Dr. Krueger: Patient seen on 11/19/18 at 0010 am Patient is an 83 y/o male who is Phillipino speaking only. He was brought to the ED by family for concern of generalized weakness to the point of being unable to stand. In the ED he was found to have a temp of 102.5F. It is reported that he had been having a productive cough of yellowish sputum for the past 5 days. He sounded rhonchous on exam in the ED. He complained of pleuritic chest pain and abdominal pain with coughing. He had a WBC of 12.8 and lactic acid of 2.4. He is on humira for psoariasis. He is being admitted for further management - HOSPITAL COURSE Hospital Course: The patient had an expected response for his CAP and JULIAN with IV antibiotics and gentle IV fluids. He did not require oxygen for his stay and was not able to produce a sputum sample. He was sent home with 5 more days of oral antibiotics and a probiotic. He was ambulatory, moving his bowels and was urinating well upon discharge. His family transported him home via private car. - ALLERGIES Allergies/Adverse Reactions: Allergies Allergy/AdvReac Type Severity Reaction Status Date / Time No Known Drug Allergies Allergy Verified 11/18/18 20:55 - MEDICATIONS Home Medications: Ambulatory Orders Medication Instructions Recorded Confirmed Adalimumab [Humira Pen] 40 mg SQ Q14D 05/11/17 11/19/18 Allopurinol 300 mg PO DAILY 05/11/17 11/19/18 Aspirin [Aspirin EC] 81 mg PO DAILY 11/19/18 11/19/18 Gabapentin 600 mg PO QPM 11/19/18 11/19/18 Amox/Clav 875/125 [Augmentin 1 tab PO BID #10 tablet 11/20/18 875/125] Azithromycin [Zithromax] 250 mg PO DAILY #5 tablet 11/20/18 Saccharomyces Boulardii [Florastor] 250 mg PO BID #60 capsule 11/20/18 - PHYSICAL EXAM AT DISCHARGE General Appearance: positive: No acute distress, Alert Eyes Bilateral: positive: Normal inspection, PERRL ENT: positive: ENT inspection nml, Oral lesions (coated tongue, not sore) Neck: positive: Thyroid nml, No JVD Respiratory: positive: Chest non-tender, No respiratory distress, Other (diminshed) Cardiovascular: positive: Regular rate & rhythm, No gallop, Systolic murmur Peripheral Pulses: positive: 2+ Abdomen: positive: Non-tender, Nml bowel sounds, Other (rounded, firm-baseline) Skin: positive: Color nml, No rash, Warm, Dry Extremities: positive: Non-tender, Full ROM, Nml appearance, No pedal edema Neurologic/Psychiatric: positive: Oriented x3, CN's nml (2-12), Motor nml, Sensation nml, Mood/affect nml Reflexes: Bicep (R): 3+, Bicep (L): 3+ - LABS Result Diagrams: 11/20/18 05:04 11/20/18 05:04 - DIAGNOSTIC IMAGING Diagnostic Imaging Results: Final report reviewed Diagnostic Imaging Results Comments: EXAM: CHEST RADIOGRAPHY EXAM DATE: 11/18/2018 FINDINGS: Lungs/Pleura: Pulmonary vascular congestion and mild interstitial kyler a. Trace effusions. No pneumothorax. Mediastinum: Cardiomegaly. IMPRESSION: Cardiomegaly, with mild congestive failure. No focal infiltrate. - FOLLOW UP Follow Up: Disposition: Home, Self Care Condition: Good Prescriptions: Amox/Clav 875/125 [Augmentin 875/125] 1 tab PO BID #10 tablet Azithromycin [Zithromax] 250 mg PO DAILY #5 tablet Saccharomyces Boulardii [Florastor] 250 mg PO BID #60 capsule Additional Instructions or Follow Up instructions: You were admitted for pneumonia and given IV antibiotics that you will need to continue at home. Your kidney function was lower than usual, which was treated with IV fluids. They have now returned to your normal. Please see your Primary care provider within one week. - TIME SPENT Time Spent in Discharge (Minutes): 45
[2018-11-20] MEDS ORDERED: AMOX/CLAV 875 MG/125 MG TABLET PO SCH (11:00)
== END 2018-11-20 11:09 | disposition home or self-care (01) ==
LOC: EDUNIT# → ED 20:36 → MS2 11-19 00:17
PROVIDERS: ADMIT Internal Medicine; ATTEND Nurse Practitioner
DX: J18.9 Pneumonia, unspecified organism (principal); N17.9 Acute kidney failure, unspecified; N18.3 Chronic kidney disease, stage 3 (moderate); L40.9 Psoriasis, unspecified; M10.9 Gout, unspecified; M54.9 Dorsalgia, unspecified; G89.29 Other chronic pain; D69.6 Thrombocytopenia, unspecified; Z79.899 Other long term (current) drug therapy; Z86.73 Personal history of transient ischemic attack (TIA), and cerebral infarction without residual deficits; Z87.891 Personal history of nicotine dependence; Z79.82 Long term (current) use of aspirin
CPT/HCPCS: 36415; 71046; 80048; 80053; 81001; 83605; 83690; 83880; 85025; 87040; 96361; 96365; 96367; 96375; 96376; 99284; A9270; G0378; 81003; 87086; 96360

== ENCOUNTER 2018-12-18 14:00 | Observation (INO) | payer MEDICARE, MEDICAID ==
--- NOTE | 2018-12-18 14:25 | ED Physician Documentation ---
PD HPI FOCAL NEURO - Stated complaint Stated Complaint: DIZZINESS/HIGH BP - Chief complaint Chief Complaint: General - History obtained from History obtained from: Patient, Family - History of Present Illness Timing - onset: Yesterday (83-year-old gentleman with chronic vertigo has felt dizzy since yesterday. He says it is a different dizziness than his usual vertigo, more of an off-balance. Its associated with diplopia with reading but not with far gaze and starting today his family noticed slurred speech. He had a headache yesterday but not today. They tried meclizine which was not helpful.) Review of Systems Ten Systems: 10 systems reviewed and negative Constitutional: denies: Fever, Chills Cardiac: denies: Chest pain / pressure, Palpitations GI: denies: Abdominal Pain, Nausea, Vomiting : denies: Dysuria, Frequency PD PAST MEDICAL HISTORY - Past Medical History Cardiovascular: None Respiratory: None Neuro: None, CVA Endocrine/Autoimmune: None GI: None : None HEENT: None Psych: None Musculoskeletal: Gout Derm: None, Psoriasis - Past Surgical History Past Surgical History: No HEENT: Cataracts - Present Medications Home Medications: Ambulatory Orders Medication Instructions Recorded Confirmed Adalimumab [Humira Pen] 40 mg SQ Q14D 05/11/17 11/19/18 Allopurinol 300 mg PO DAILY 05/11/17 11/19/18 Aspirin [Aspirin EC] 81 mg PO DAILY 11/19/18 11/19/18 Gabapentin 600 mg PO QPM 11/19/18 11/19/18 - Allergies Allergies/Adverse Reactions: Allergies Allergy/AdvReac Type Severity Reaction Status Date / Time No Known Drug Allergies Allergy Verified 11/18/18 20:55 - Social History Does the pt smoke?: No Smoking Status: Former smoker Does the pt drink ETOH?: Yes Does the pt have substance abuse?: No - Family History Family history: reports: Non contributory - Immunizations Immunizations are current?: Yes Immunizations: TDAP current <10years - POLST Patient has POLST: No POLST Status: Full Code PD ED PE NORMAL - Vitals Vital signs reviewed: Yes - General General: Alert and oriented X 3, No acute distress - HEENT HEENT: PERRL, EOMI - Neck Neck: Supple, no meningeal sign, No bony TTP - Cardiac Cardiac: RRR, No murmur - Respiratory Respiratory: No respiratory distress, Clear bilaterally - Abdomen Abdomen: Soft, Non tender - Back Back: No CVA TTP, No spinal TTP - Derm Derm: Normal color, Warm and dry - Extremities Extremities: No deformity, No tenderness to palpate, No edema, No calf tenderness / cord - Neuro Neuro: Alert and oriented X 3, 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 2-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, Normal speech Eye Opening: Spontaneous Motor: Obeys Commands Verbal: Oriented GCS Score: 15 - Psych Psych: Normal mood, Normal affect NIHSS - Time Time: 14:12 - Level of Consciousness Level of consciousness: (0) Alert, Keenly responsive LOC Questions: (0) Answers both Q's correct LOC Commands: (0) Performs both correctly - Gaze Best Gaze: (0) Normal - Visual Visual: (0) No loss - Facial Palsy Facial Palsy: (0) Normal, symmetrical movement - Motor Arms (both separate) Motor Arm (right): (0) No drift Motor Arm (left): (0) No drift - Motor Legs (both separate) Motor Leg (right): (0) No drift Motor Leg (left): (0) No drift - Limb Ataxia Limb Ataxia: (0) Absent - Best Language Best Language: (0) No aphasia - Dysarthria Dysarthria: (1) [id number] dysarthria (hard to say d/t language barrier (Tagalog), but family says yes) - Extinction and Inattention (formally neg Extinction and inattention: (0) No abnormality Results - Vitals Vitals: Vital Signs - 24 hr 12/18/18 12/18/18 12/18/18 14:04 14:43 15:06 Temperature 37.5 C Heart Rate 74 72 69 Respiratory 18 14 15 Rate Blood Pressure 192/78 H 173/82 H 163/74 H O2 Saturation 97 97 96 Oxygen O2 Source [] Room air O2 Source Room air - EKG (time done) 1412 Rate: Rate (enter#) (74) Rhythm: NSR [place]: Normal Intervals: Normal [place] QRS: Normal Ischemia: Non specific changes Computer interpretation: Agree with computer - Labs Labs: Laboratory Tests 12/18/18 12/18/18 12/18/18 14:14 14:15 14:15 WBC 8.4 RBC 3.95 L Hgb 13.5 L Hct 41.2 L MCV 104.3 H MCH 34.2 H MCHC 32.8 RDW 13.1 Plt Count 103 L MPV 11.7 H Neut # (Auto) 3.7 Lymph # (Auto) 3.7 H [place] # (Auto) 0.7 Eos # (Auto) 0.4 Baso # (Auto) 0.1 Absolute Nucleated RBC 0.00 Nucleated RBC % 0.0 Sodium 134 L Potassium 4.2 Chloride 101 Carbon Dioxide 23 Anion Gap 10.0 BUN 24 H Creatinine 2.0 H Estimated GFR (MDRD) 32 L Glucose 183 H POC Whole Bld Glucose 196 H Calcium 9.5 Total Bilirubin 0.9 AST 52 H ALT 51 Alkaline Phosphatase 71 Total Creatine Kinase 70 CK-MB (CK-2) Troponin I Total Protein 8.0 Albumin 3.6 Globulin 4.4 H Albumin/Globulin Ratio 0.8 L Lipase 42 12/18/18 14:15 WBC RBC Hgb Hct MCV MCH MCHC RDW Plt Count MPV Neut # (Auto) Lymph # (Auto) [place] # (Auto) Eos # (Auto) Baso # (Auto) Absolute Nucleated RBC Nucleated RBC % Sodium Potassium Chloride Carbon Dioxide Anion Gap BUN Creatinine Estimated GFR (MDRD) Glucose POC Whole Bld Glucose Calcium Total Bilirubin AST ALT Alkaline Phosphatase Total Creatine Kinase CK-MB (CK-2) 1.3 Troponin I < 0.04 Total Protein Albumin Globulin Albumin/Globulin Ratio Lipase - Rads (name of study) CT Head Radiology: EMP read contemporaneously (age related chgs, NAD) PD MEDICAL DECISION MAKING - ED course ED course: This is an 83-year-old gentleman with history of stroke and multiple comorbidities who presents with disequilibrium since yesterday followed by diplopia with reading and some slurred speech. NIH stroke scale is 1 for slurred speech. He is not a TPA candidate due to the time course. Head CT was grossly negative. He was administered aspirin and IV fluids after the head CT. He will be observed for neurochecks and MRI in the morning and I spoke with Dr. Dowell for this at 3:58 PM. Departure - Departure Disposition: ED Place in Observation Clinical Impression: CKD (chronic kidney disease) stage 3, GFR 30-59 ml/min Cerebrovascular accident (CVA) Qualifiers: CVA mechanism: unspecified Qualified Code(s): I63.9 - Cerebral infarction, unspecified Condition: Fair
[2018-12-18 14:30] LABS: BASOPHILS # (AUTO) 0.1 10^3/uL (0.0-0.1); BASOPHILS % (AUTO) 0.6 %; EOSINOPHILS # (AUTO) 0.4 10^3/uL (0.0-0.7); EOSINOPHILS % (AUTO) 4.2 %; HGB - HEMOGLOBIN 13.5 g/dL (14.0-18.0); LYMPHOCYTES # (AUTO) 3.7 10^3/uL (1.5-3.5); LYMPHOCYTES % (AUTO) 43.4 %; MEAN CORPUSCULAR HEMOGLOBIN 34.2 pg (27.0-31.0); MEAN CORPUSCULAR HGB CONC 32.8 g/dL (32.0-36.0); MEAN CORPUSCULAR VOLUME 104.3 fL (80.0-94.0); MEAN PLATELET VOLUME 11.7 fL (7.4-11.4); MONOCYTES # (AUTO) 0.7 10^3/uL (0.0-1.0); MONOCYTES % (AUTO) 7.7 %; NEUTROPHILS # (AUTO) 3.7 10^3/uL (1.5-6.6); NEUTROPHILS % (AUTO) 43.7 %; PLT - PLATELET COUNT 103 10^3/uL (130-450); RED BLOOD COUNT 3.95 10^6/uL (4.70-6.10); RED CELL DISTRIBUTION WIDTH 13.1 % (12.0-15.0); WHITE BLOOD COUNT 8.4 x10^3/uL (4.8-10.8)
[2018-12-18] MEDS ORDERED: IOVERSOL 320 100 ML VIAL IVP ONE (14:40)
[2018-12-18 14:42] LABS: ALBUMIN 3.6 g/dL (3.2-5.5); ALBUMIN/GLOBULIN RATIO 0.8 (1.0-2.2); BILIRUBIN,TOTAL 0.9 mg/dL (0.2-1.0); CALCIUM 9.5 mg/dL (8.5-10.3)
[2018-12-18 14:46] LABS: TROPONIN I < 0.04 ng/mL (<0.49)
[2018-12-18 14:48] LABS: CREATINE KINASE MB 1.3 ng/mL (0.6-6.3)
--- NOTE | 2018-12-18 15:37 | CT Report ---
Reason: dizzy, diplopia Procedure Date: 12/18/2018 Accession Number: [id number] / [id number] Procedure: CT - HEAD WO CPT Code: FULL RESULT: EXAM: CT HEAD EXAM DATE: 12/18/2018 03:18 PM. CLINICAL HISTORY: Dizzy, diplopia. COMPARISON: HEAD ANGIO 09/24/2017 4:33 AM. TECHNIQUE: Multiaxial CT images were obtained from the foramen magnum to the vertex. Reformats: Sagittal and coronal. IV contrast: None. In accordance with CT protocol optimization, one or more of the following dose reduction techniques were utilized for this exam: automated exposure control, adjustment of mA and/or KV based on patient size, or use of iterative reconstructive technique. FINDINGS: Parenchyma: No intraparenchymal hemorrhage. No evidence of mass, midline shift, or CT findings of infarction. Murphy-white differentiation is distinct. Mild periventricular hypoattenuation seen. Extraaxial Spaces: Mild atrophy present. No subdural or epidural collections identified. Ventricles: Normal in size and position. Sinuses and Orbits: Imaged paranasal sinuses, orbits, and mastoids show no significant abnormality. Bones: No evidence of fracture or calvarial defect. Other: None. IMPRESSION: Mild senescent changes without CT evidence of acute intracranial disease. RADIA
[2018-12-18] MEDS ORDERED: ASPIRIN CHEW 81 MG TABLET PO STA (15:47)
[2018-12-18] MEDS ORDERED: SODIUM CHLORIDE 0.9% 1,000 ML IV ONE (15:55)
[2018-12-18] MEDS ORDERED: ONDANSETRON 4 MG/2 ML VIAL IVP PRN (16:04)
[2018-12-18] MEDS ORDERED: SODIUM CHLORIDE FLUSH 0.9% 10 ML SYRINGE IVP PRN (16:04)
[2018-12-18] MEDS ORDERED: ACETAMINOPHEN 325 MG TABLET PO PRN (16:04)
--- NOTE | 2018-12-18 16:06 | HISTORY & PHYSICAL EXAMINATION ---
Chief Complaint - Chief Complaint Chief Complaint: dizziness, headache, blurred vision, ataxia History of Present Illness - Admitted From Admitted From:: ED - History Obtained From Records Reviewed: yes History obtained from: chart review Exam Limitations: AMS - History of Present Illness HPI Comment/Other: Queenie Degroot is a Fill[place] 83 year old male with a past medical history of dementia, hearing loss, CVA with resolved left sided weakness after administration of TPA about 1 year ago, recent pneumonia, chronic cough, profound nocturia in which he does not get greater than 2 hours of sleep at one time, BPH, obesity, and alcoholism in remission. He was discharged from the hospital at the end of October after being treated for community acquired pneumonia. Since that time, he did not have a resolution of his upper respiratory symptoms, and yesterday developed a frontal headache that was very severe. He has not had any syncope, but admits to having dizziness with this headache. He was brought in by family today via private vehicle due to his recent CVA and the worry that his headache may be another stroke. 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 He continues to complain of a headache and points to his forehead, and the top of his head. He denies chest pain, nausea, diaphoresis, loss of appetite, changes in his urination, any new pain, diarrhea, or new numbness or tingling. After examination of his ears and inner ears, his tympanic membranes were noted to have fluid behind them with erythema in the canal, although a negative pinna exam in which he denied tenderness when tugging on his ears. Labs are unremarkable, preliminary head CT shows no acute infarcts. He will be admitted to observation for a stroke work up. 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: None : reports: Benign prostate hypertrophy, Incontinence, Renal insuffiency, Nocturia, Frequency HEENT: reports: Chronic vision loss, Chronic sinusitis, Chronic hearing loss Psych: reports: None Musculoskeletal: reports: Osteoarthritis, Osteoporosis, Gout Derm: reports: Psoriasis MRSA Hx?: No - Past Surgical History HEENT: reports: Cataracts - Family & Social History Family History: Mother: (Parents from old age according to their grandson), Father: Family History Comment/Other: The patient's son states that there is no family history of hypertension, hypercholesterolemia, CVA, cancer, diabetes mellitus, myocardial infarction, or any other health issues that he is aware of. He says that the patient's parents of old age, and the one other family member who has that he is aware of in an accident. Living arrangement: At home Living Situation: With spouse/s.o., With family Social History Notes: Rare alcohol use. No tobacco or illicit drug use - Substance History Use: Uses substance without health or social issues: Alcohol (Rare alcohol use. There is no history of abuse.) Abuse: Recurrent use of substance despite neg consequences: NONE Dependence: Experiences withdrawal or developed tolerances: NONE Tobacco Details: Cigarettes (smoked from age [age]) - POLST Patient has POLST: No POLST Status: Full Code Meds/Allgy - Home Medications Home Medications: Ambulatory Orders Medication Instructions Recorded Confirmed Adalimumab [Humira Pen] 40 mg SQ Q14D 05/11/17 12/18/18 Allopurinol 300 mg PO DAILY 05/11/17 12/18/18 Aspirin [Aspirin EC] 81 mg PO DAILY 11/19/18 12/18/18 Gabapentin 600 mg PO QPM 11/19/18 12/18/18 Lisinopril 10 mg PO DAILY 12/18/18 12/18/18 - Allergies Allergies/Adverse Reactions: Allergies Allergy/AdvReac Type Severity Reaction Status Date / Time No Known Drug Allergies Allergy Verified 11/18/18 20:55 Review of Systems - Constitutional Constitutional: reports: Fatigue, Weakness - Eyes Eyes: reports: Blurred vision, Spots in vision, Vision loss - Ears, Nose & Throat Ears, Nose & Throat: reports: Ear pain, Hearing loss, Hearing aids, Nasal congestion, Postnasal drainage, Sore throat, Hoarseness - Cardiovascular Cariovascular: reports: Lightheadedness, Decr. exercise tolerance, Orthopnea - Respiratory Respiratory: reports: Cough, Sputum production, Snoring, Orthopnea, SOB with exertion - Gastrointestinal Gastrointestinal: reports: Abdominal distention, Reflux/heartburn, Bloating - Genitourinary Genitourinary: reports: Dysuria, Frequency, Urgency, Incontinence, Nocturia (every 1-2 hours due to incontinence and the refusal to wear diapers) - Musculoskeletal Musculoskeletal: reports: Back pain - Integumentary Integumentary: reports: Lesions, Dryness - Neurological Neurological: reports: General weakness, Headache, Dizziness, Memory problems, Pre-existing deficit - Hematologic/Lymphatic Hematologic/Lymphatic: reports: Recurrent infections - All Other Systems All Other Systems: reports: Reviewed and negative Prior Level of Functionality: Independent at home, uses a walker, no recent falls Exam - Vital Signs Reviewed Vital Signs: Yes Vital Signs: Vital Signs x48h Temp Pulse Resp BP Pulse Ox 12/18/18 15:06 69 15 163/74 H 96 12/18/18 14:43 72 14 173/82 H 97 12/18/18 14:04 37.5 C 74 18 192/78 H 97 - Physical Exam General Appearance: positive: Alert, Moderate distress Eyes Bilateral: positive: PERRL, No lid inflammation ENT: positive: Purulent nasal drainage, Pharyngeal erythema, Dry mucous membranes Neck: positive: Thyroid nml, No JVD, Lymphadenopathy (R), Lymphadenopathy (L), Stiff neck Respiratory: positive: Chest non-tender, Other (scattered crackles) Cardiovascular: positive: Regular rate & rhythm, No gallop, Systolic murmur, Decreased pulse(s) Peripheral Pulses: positive: 2+ Abdomen: positive: Non-tender, Nml bowel sounds, Hepatomegaly, Other (rounded, obese, soft) Back: positive: Nml inspection Skin: positive: No rash, Warm, Dry Extremities: positive: Non-tender, Full ROM, No pedal edema Neurologic/Psychiatric: positive: Oriented x3, CN's nml (2-12), Motor nml, Weakness, Sensory loss, Depressed mood/affect Reflexes: Bicep (R): 3+, Bicep (L): 3+, Ankle (R): 3+, Ankle (L): 3+ Conclusion/Plan - Problem List (1) TIA (transient ischemic attack) Conclusion/Plan: - Patient has had a severe headache that started yesterday - Also with dizziness, concerning for TIA - No loss of speech, confusion, nausea, diaphoresis, or chest pain Plan: Head MRI in the AM, echocardiogram, high dose statin, and ASA, allow elevated blood pressures, but less than 180 systolic (2) Cerebrovascular accident (CVA) Conclusion/Plan: - One year ago had profound sudden onset left sided weakness - TPA given with a near full resolution of this symptoms - Now with TIA symptoms of dizziness, severe headaches, hypertension Plan: Continue stroke work up, await final results of testing Qualifiers: CVA mechanism: unspecified Qualified Code(s): I63.9 - Cerebral infarction, unspecified (3) Sinusitis Conclusion/Plan: - Was discharged in late October for treatment of CAP - Since that time, his cough has been ongoing - Productive at times, worse when lying down - On exam, tenderness noted to frontal sinus - Mucous noted behind tympanic membranes - Mildly swollen glands Plan: Start Afrin spray, saline spray for comfort, then daily Flonase Qualifiers: Sinusitis location: frontal (4) Acute on chronic renal failure Conclusion/Plan: - Baseline creatinine is 1.6 - Now creatinine is 2.0 - Chronic urinary incontinence - No recent bladder infections - Also has BPH - Not sure of heart function, echo is pending to rule out cardio-renal syndrome as a cause Plan: Continue IV fluids, consider Flomax if improved Qualifiers: Chronic kidney disease stage: stage 2 (mild) (5) Hypertension Conclusion/Plan: - Lisinopril at home, now on hold to allow blood pressure to stay elevated in the setting of possible TIA/CVA - Parameters for SBP to keep less than 180, or can give IV labatolol Plan: Continue to watch blood pressure, avoid higher than 180 SBP as then he is at risk for seizures, resume home med after echo and head MRI Qualifiers: Hypertension type: essential hypertension Qualified Code(s): I10 - Essential (primary) hypertension (6) Cough Conclusion/Plan: - Likely caused by post nasal drip from untreated chronic sinusitis - Starting Afrin spray - Singular to start tomorrow night - Will recommend daily Flonase spray after that - Recent PNA likely due to upper respiratory Plan: Continue to monitor, monitor vital signs, and continue nasal sprays (7) BPH (benign prostatic hyperplasia) Conclusion/Plan: - Admits to several years of nocturia - Now states that he gets up every 1-2 hours through out the night since he has incontinence Plan: Consider Flomax after kidney function improves Qualifiers: Lower urinary tract symptom presence: symptoms present Lower urinary tract symptom detail: incomplete bladder emptying Qualified Code(s): N40.1 - Benign prostatic hyperplasia with lower urinary tract symptoms; R39.14 - Feeling of incomplete bladder emptying (8) Urinary incontinence Conclusion/Plan: - Likely related to his BPH - Awakes several times per night since he has almost no bladder control and refuses to wear diapers Plan: Provide a urinal, consider Flomax after kidney function improves - Lab Results Lab results reviewed: Yes Prieto Bones: 12/18/18 14:15 12/18/18 14:15 Core Measures - Anticipated LOS I expect patient to be DC'd or transferred within 96 hours.: Yes - DVT/VTE - Prophylaxis VTE/DVT Device ordered at admit?: Yes VTE/DVT Prophylaxis med ordered at admit?: Yes - Stroke - Rehab Assessment Rehab services assessment to be ordered?: Yes - AMI - Statin at Admit Aspirin Prescribed on Admit: Yes
[2018-12-18] MEDS ORDERED: SODIUM CHLORIDE 0.65% NASAL SPRAY NAS PRN (17:20)
[2018-12-18] MEDS: SODIUM CHLORIDE FLUSH 0.9% 10 ML SYRINGE IVP SCH (17:31)
[2018-12-18] MEDS: SODIUM CHLORIDE 0.9% 1,000 ML IV SCH (17:31)
[2018-12-18] MEDS ORDERED: LABETALOL 5 MG/1 ML 20 ML MDV IVP PRN (18:34)
[2018-12-18] MEDS: FAMOTIDINE 20 MG TABLET PO SCH (20:15)
[2018-12-18] MEDS ORDERED: ATORVASTATIN 40 MG TABLET PO SCH (21:00)
[2018-12-18] MEDS ORDERED: GABAPENTIN 300 MG CAPSULE PO SCH (21:00)
[2018-12-19] MEDS: SODIUM CHLORIDE FLUSH 0.9% 10 ML SYRINGE IVP SCH ×2 (02:05→08:10)
[2018-12-19] MEDS: SODIUM CHLORIDE 0.9% 1,000 ML IV SCH (03:10)
[2018-12-19 05:34] LABS: BASOPHILS % (AUTO) 0.5 %; EOSINOPHILS # (AUTO) 0.4 10^3/uL (0.0-0.7); EOSINOPHILS % (AUTO) 5.7 %; HGB - HEMOGLOBIN 12.2 g/dL (14.0-18.0); MEAN CORPUSCULAR HEMOGLOBIN 34.6 pg (27.0-31.0); MEAN CORPUSCULAR VOLUME 104.8 fL (80.0-94.0); MEAN PLATELET VOLUME 11.1 fL (7.4-11.4); MONOCYTES # (AUTO) 0.8 10^3/uL (0.0-1.0); MONOCYTES % (AUTO) 10.1 %; NEUTROPHILS # (AUTO) 3.1 10^3/uL (1.5-6.6); NEUTROPHILS % (AUTO) 42.4 %; PLT - PLATELET COUNT 92 10^3/uL (130-450); RED BLOOD COUNT 3.53 10^6/uL (4.70-6.10); RED CELL DISTRIBUTION WIDTH 13.2 % (12.0-15.0); WHITE BLOOD COUNT 7.4 x10^3/uL (4.8-10.8)
[2018-12-19 05:47] LABS: ALBUMIN 3.2 g/dL (3.2-5.5); ALBUMIN/GLOBULIN RATIO 0.8 (1.0-2.2); CALCIUM 8.9 mg/dL (8.5-10.3); CREATININE 1.9 mg/dL (0.6-1.2); MAGNESIUM 2.1 mg/dL (1.7-2.8); PHOSPHORUS 3.4 mg/dL (2.5-4.6); TOTAL PROTEIN 7.1 g/dL (6.7-8.2)
[2018-12-19 05:55] LABS: HB2 TOTAL 12.6 g/dL; HEMOGLOBIN A1C 0.51 g/dL; HEMOGLOBIN A1C % 5.9 % (4.6-6.2)
[2018-12-19] MEDS ORDERED: ASPIRIN 325 MG TABLET PO SCH (08:00)
[2018-12-19] MEDS: FAMOTIDINE 20 MG TABLET PO SCH (08:09)
[2018-12-19] MEDS ORDERED: POLYETHYLENE GLYCOL 3350 17 GM PACKET PO SCH (09:00)
[2018-12-19] MEDS ORDERED: ALLOPURINOL 100 MG TABLET PO SCH (09:00)
[2018-12-19] MEDS ORDERED: ENOXAPARIN 30 MG/0.3 ML SYRINGE SUBQ SCH (09:00)
--- NOTE | 2018-12-19 11:11 | MRI Report ---
Reason: TIA, dizziness, blurred vision, hx CVA Procedure Date: 12/19/2018 Accession Number: [id number] / [id number] Procedure: MRI - Brain W/O CPT Code: FULL RESULT: EXAM: MRI BRAIN WITHOUT CONTRAST EXAM DATE: 12/19/2018 10:22 AM. CLINICAL HISTORY: 83-year-old male. TIA, dizziness, blurred vision, hx CVA. COMPARISON: HEAD W/O 12/18/2018 3:18 PM BRAIN W/WO 09/24/2017 2:41 PM. TECHNIQUE: Multiplanar, multisequence T1-weighted and fluid-sensitive MR sequences of the brain were performed. Sequences optimized for routine evaluation. Other: None. IV Contrast: None. FINDINGS: Brain Volume: Normal for age. Parenchyma/Dura: No mass, acute infarct or hemorrhage. Moderately extensive, scattered T2/FLAIR hyperintense periventricular, deep, and subcortical white matter lesions within cerebral hemispheres bilaterally. There is a focus of susceptibility artifact within the right basal ganglia, likely representing a chronic microhemorrhage. Ventricles/Cisterns: No hydrocephalus. No abnormal extra-axial fluid collection or hemorrhage. Orbits: Symmetric and unremarkable. Sella Turcica: The pituitary gland, cavernous sinuses, suprasellar cistern and optic chiasm are unremarkable. IAC: Symmetric and unremarkable. Vasculature: Normal signal flow void is seen in the major arterial structures at the skull base. Sinuses: Moderate mucosal thickening bilateral maxillary sinuses. The remaining paranasal sinuses are clear. Bones: No focal pathologic appearing marrow signal changes. Other: None. IMPRESSION: 1. No MRI evidence of acute intracranial abnormality. Specifically, no evidence of acute or subacute infarct, acute intracranial hemorrhage, mass, midline shift, or hydrocephalus. 2. Moderately extensive, scattered T2/FLAIR hyperintense periventricular, deep, and subcortical white matter lesions within cerebral hemispheres bilaterally. While nonspecific, these are favored to represent sequela of chronic microangiopathy. 3. There is a focus of susceptibility artifact within the right basal ganglia, likely representing a chronic microhemorrhage. RADIA
[2018-12-19] MEDS ORDERED: TAMSULOSIN 0.4 MG CAPSULE PO SCH (13:00)
[2018-12-19 13:48] VITALS: BP 185/68
--- NOTE | 2018-12-19 14:25 | Discharge Plan ---
Discharge Plan Disposition: 01 Home, Self Care Condition: Good Prescriptions: Fluticasone [Flonase] 2 sprays ELENI DAILY #1 bottle Guaifenesin [Mucinex] 600 mg PO BID PRN #60 tab.er.12h PRN Reason: Cough hydrALAZINE [Apresoline] 10 mg PO TID #90 tablet Oxymetazoline HCl [Afrin] 15 ml NS BID 3 Days #1 spray Tamsulosin [Flomax] 0.4 mg PO DAILY #30 capsule Diet: Regular Activity Restrictions: Activity as Tolerated Shower Restrictions: No Weight Bearing: Full Weight Health Concerns: Headaches with dizziness Rule out stroke Elevated triglycerides Sinusitis Frequent urination due to BPH Chronic kidney disease stage 3 Plan of Treatment: Complete treatment for acute sinusitis with 3 full days of Afrin spray (6 doses or 3 days). Continue Flonase daily. Take an anti-lipid medication because a triglyceride lowering agent is nephrotoxic. Care Goals: A resolution of headaches and dizziness Prevent recurrance Improve sleep by controlling bladder symptoms Preserve kidney function Assessment: You were admitted to the hospital for a stroke work up. Both a head MRI and an echocardiogram were negative as to potential causes for your symptoms of headaches and dizziness. I am concerned of your overall kidney function slowly declining. The lisinopril can be toxic to your kidneys, so I have replaced this medication with hydralazine, which is not processed by the kidneys and works a little differently to lower blood pressure. In the ED, I inspected inside of your ears and found that you had a layer of mucous inside of your inner ears, indicating sinusitis, which could cause your headaches and your dizziness. You should use Afrin spray for 3 days, (6 doses), then a daily Flonase daily. Controlling your post nasal drip may prevent pneumonia like you had a month ago. I am also concerned about your frequent urination, so please take Flomax to see if this improves your sleep. Please see your PCP within one week, Dr. Treviño will be alerted of these medication changes. No Smoking: If you smoke, Please STOP! Call for help. Follow-up with: Vianca Treviño MD [Primary Care Provider] -
[2018-12-19] MEDS ORDERED: hydrALAZINE 10 MG TABLET PO SCH (15:00)
--- NOTE | 2018-12-19 17:13 | DISCHARGE SUMMARY ---
Discharge Summary Admit Date: 12/18/18 Discharge Date: 12/19/18 Discharging Provider: SAMIR Oliveira Primary Care Provider: Vianca Treviño Code Status: Attempt Resuscitation Condition at Discharge: Good Discharge Disposition: 01 Home, Self Care - DIAGNOSES Admission Diagnoses: TIA (transient ischemic attack) Sinusitis CVA (cerebral vascular accident) Acute on chronic renal failure Hypertension Cough BPH (benign prostatic hyperplasia) Urinary incontinence Discharge Diagnoses with Status of Each Condition: TIA (transient ischemic attack)- Resolved Sinusitis- Recommend 3 days of Afrin spray, then daily Flonase, related to headaches CVA (cerebral vascular accident)- No acute stroke per head MRI Acute on chronic renal failure- Improve creatinine, stopped NEHEMIAS, started Hydralazine to avoid a nephrotoxic agent Hypertension- Continue Hydralazine at home, follow up with PCP Cough- chronic, thought to be related to ongoing sinusitis BPH (benign prostatic hyperplasia)- started on Flomax to improve quality of life, stopped NEHEMIAS to allow room for Flomax Urinary incontinence- Patient has been up every 1 hour to urinate since he refu ses to use adult briefs and has not tried BPH meds Headache- improved, treating for sinusitis, consider Singular Vertigo- Improved, continue on nasal sprays Stage 3 CKD- improved, encouraged to drink fluids, no CHF on echo - HPI History of Present Illness: Queenie Degroot is a [place] 83 year old male with a past medical history of dementia, hearing loss, CVA with resolved left sided weakness after administration of TPA about 1 year ago, recent pneumonia, chronic cough, profound nocturia in which he does not get greater than 2 hours of sleep at one time, BPH, obesity, and alcoholism in remission. He was discharged from the hospital at the end of October after being treated for community acquired pneumonia. Since that time, he did not have a resolution of his upper respiratory symptoms, and yesterday developed a frontal headache that was very severe. He has not had any syncope, but admits to having dizziness with this headache. He was brought in by family today via private vehicle due to his recent CVA and the worry that his headache may be another stroke. 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 He continues to complain of a headache and points to his forehead, and the top of his head. He denies chest pain, nausea, diaphoresis, loss of appetite, changes in his urination, any new pain, diarrhea, or new numbness or tingling. After examination of his ears and inner ears, his tympanic membranes were noted to have fluid behind them with erythema in the canal, although a negative pinna exam in which he denied tenderness when tugging on his ears. Labs are unremarkable, preliminary head CT shows no acute infarcts. He will be admitted to observation for a stroke work up. - ALLERGIES Allergies/Adverse Reactions: Allergies Allergy/AdvReac Type Severity Reaction Status Date / Time No Known Drug Allergies Allergy Verified 11/18/18 20:55 - MEDICATIONS Home Medications: Ambulatory Orders Medication Instructions Recorded Confirmed Adalimumab [Humira Pen] 40 mg SQ Q14D 05/11/17 12/18/18 Allopurinol 300 mg PO DAILY 05/11/17 12/18/18 Aspirin [Aspirin EC] 81 mg PO DAILY 11/19/18 12/18/18 Gabapentin 600 mg PO QPM 11/19/18 12/18/18 Fluticasone [Flonase] 2 sprays ELENI DAILY #1 bottle 12/19/18 Guaifenesin [Mucinex] 600 mg PO BID PRN #60 tab.er.12h 12/19/18 Oxymetazoline HCl [Afrin] 15 ml NS BID 3 Days #1 spray 12/19/18 Tamsulosin [Flomax] 0.4 mg PO DAILY #30 capsule 12/19/18 hydrALAZINE [Apresoline] 10 mg PO TID #90 tablet 12/19/18 - PHYSICAL EXAM AT DISCHARGE General Appearance: positive: No acute distress, Alert Eyes Bilateral: positive: PERRL, Conjunctivae nml, No scleral icterus ENT: positive: No signs of dehydration, Purulent nasal drainage (post nasal drip, causing a cough), Pharyngeal erythema, Other ([place]) Neck: positive: Thyroid nml, No JVD, Trachea midline Respiratory: positive: Chest non-tender, No respiratory distress, Breath sounds nml Cardiovascular: positive: Regular rate & rhythm, No gallop, Systolic murmur Peripheral Pulses: positive: 2+ Abdomen: positive: Non-tender, Nml bowel sounds, Hepatomegaly, Other (rounded, soft) Back: positive: Nml inspection Skin: positive: Color nml, No rash, Warm, Dry Extremities: positive: Non-tender, Full ROM, Nml appearance, Pedal edema (trace, BLE, abdominal edema) Neurologic/Psychiatric: positive: Oriented x3, CN's nml (2-12), Motor nml, Sensation nml, Mood/affect nml Reflexes: Bicep (R): 3+, Bicep (L): 3+ - LABS Result Diagrams: 12/19/18 05:27 12/19/18 05:27 - FOLLOW UP Follow Up: Disposition: Home, Self Care Condition: Good Prescriptions: Fluticasone [Flonase] 2 sprays ELENI DAILY #1 bottle Guaifenesin [Mucinex] 600 mg PO BID PRN #60 tab.er.12h PRN Reason: Cough hydrALAZINE [Apresoline] 10 mg PO TID #90 tablet Oxymetazoline HCl [Afrin] 15 ml NS BID 3 Days #1 spray Tamsulosin [Flomax] 0.4 mg PO DAILY #30 capsule Diet: Regular Activity Restrictions: Activity as Tolerated Health Concerns: Headaches with dizziness Rule out stroke Elevated triglycerides Sinusitis Frequent urination due to BPH Chronic kidney disease stage 3 Plan of Treatment: Complete treatment for acute sinusitis with 3 full days of Afrin spray (6 doses or 3 days). Continue Flonase daily. Take an anti-lipid medication because a triglyceride lowering agent is nephrotoxic. Care Goals: A resolution of headaches and dizziness Prevent recurrance Improve sleep by controlling bladder symptoms Preserve kidney function Assessment: You were admitted to the hospital for a stroke work up. Both a head MRI and an echocardiogram were negative as to potential causes for your symptoms of headaches and dizziness. I am concerned of your overall kidney function slowly declining. The lisinopril can be toxic to your kidneys, so I have replaced this medication with hydralazine, which is not processed by the kidneys and works a little differently to lower blood pressure. In the ED, I inspected inside of your ears and found that you had a layer of mucous inside of your inner ears, indicating sinusitis, which could cause your headaches and your dizziness. You should use Afrin spray for 3 days, (6 doses), then a daily Flonase daily. Controlling your post nasal drip may prevent pneumonia like you had a month ago. I am also concerned about your frequent urination, so please take Flomax to see if this improves your sleep. Please see your PCP within one week, Dr. Treviño will be alerted of these medication changes. - TIME SPENT Time Spent in Discharge (Minutes): 50
== END 2018-12-19 16:00 | disposition home or self-care (01) ==
LOC: ED 14:00 → MS2 16:04 → OBS 17:11
PROVIDERS: ADMIT Nurse Practitioner; ATTEND Nurse Practitioner
DX: G45.9 Transient cerebral ischemic attack, unspecified (principal); J32.9 Chronic sinusitis, unspecified; I12.9 Hypertensive chronic kidney disease with stage 1 through stage 4 chronic kidney disease, or unspecified chronic kidney disease; N18.3 Chronic kidney disease, stage 3 (moderate); N17.9 Acute kidney failure, unspecified; R05 Cough; N40.1 Benign prostatic hyperplasia with lower urinary tract symptoms; R35.1 Nocturia; R32 Unspecified urinary incontinence; R35.0 Frequency of micturition; R39.15 Urgency of urination; R30.0 Dysuria; R42 Dizziness and giddiness; F03.90 Unspecified dementia, unspecified severity, without behavioral disturbance, psychotic disturbance, mood disturbance, and anxiety; H91.90 Unspecified hearing loss, unspecified ear; E66.9 Obesity, unspecified; Z68.28 Body mass index [BMI] 28.0-28.9, adult; F10.21 Alcohol dependence, in remission; E78.2 Mixed hyperlipidemia; I25.10 Atherosclerotic heart disease of native coronary artery without angina pectoris; I73.9 Peripheral vascular disease, unspecified; R01.1 Cardiac murmur, unspecified; J44.9 Chronic obstructive pulmonary disease, unspecified; G47.30 Sleep apnea, unspecified; G62.9 Polyneuropathy, unspecified; H54.7 Unspecified visual loss; M19.90 Unspecified osteoarthritis, unspecified site; M81.0 Age-related osteoporosis without current pathological fracture; M10.9 Gout, unspecified; L40.9 Psoriasis, unspecified; R29.701 NIHSS score 1; Z79.82 Long term (current) use of aspirin; Z79.899 Other long term (current) drug therapy; Z87.891 Personal history of nicotine dependence; Z86.73 Personal history of transient ischemic attack (TIA), and cerebral infarction without residual deficits; Z87.01 Personal history of pneumonia (recurrent)
CPT/HCPCS: 36415; 70450; 70551; 80053; 82550; 82553; 83036; 83605; 83690; 83735; 84100; 84478; 84484; 85025; 92610; 93005; 93306; 96360; 96361; 96372; 97161; 99284; 99285; A9270; G0378; 84443

== ENCOUNTER 2019-01-12 07:18 | Outpatient (CLI) | payer MEDICARE, MEDICAID ==
--- NOTE | 2019-01-12 10:46 | Ultrasound Report ---
Reason: ABDOMINAL WALL HERNIA Procedure Date: 01/12/2019 Accession Number: [id number] / [id number] Procedure: US - Abdomen Limited CPT Code: FULL RESULT: EXAM: ABDOMEN ULTRASOUND LIMITED, LIMITED SOFT TISSUE WALL. EXAM DATE: 01/12/2019 07:36 AM. CLINICAL HISTORY: Abdominal wall hernia. Per patient, bulge in the midline of the abdomen for 2 months. No pain. No history of hernia repair. COMPARISON: ABDOMEN LIMITED 02/19/2017 7:44 AM. TECHNIQUE: Real-time scanning was performed with static images obtained. FINDINGS: The area of interest was scanned by grayscale ultrasound with and without Valsalva maneuver. No mass or hernia is seen and no abdominal wall defect is identified. IMPRESSION: No hernia. RADIA
== END 2019-01-12 07:19 | disposition home or self-care (01) ==
LOC: DI 07:18
PROVIDERS: ATTEND Family Medicine
DX: K46.9 Unspecified abdominal hernia without obstruction or gangrene (principal)
CPT/HCPCS: 76705

== ENCOUNTER 2019-01-12 08:24 | Outpatient (CLI) | payer MEDICARE, MEDICAID ==
--- NOTE | 2019-01-12 10:47 | XRAY Report ---
Reason: LOW BACK PAIN Procedure Date: 01/12/2019 Accession Number: [id number] / [id number] Procedure: XR - Lumbar Spine Complete CPT Code: FULL RESULT: EXAM: LUMBOSACRAL SPINE RADIOGRAPHY EXAM DATE: 01/12/2019 08:47 AM. CLINICAL HISTORY: Low back pain. COMPARISONS: LUMBAR SPINE 2 VIEW 12/06/2016 5:55 PM. TECHNIQUE: 5 views. FINDINGS: Alignment: Oblique views demonstrate at least moderate narrowing of osseous neural foramina at multiple levels, for example on LPO L4-L5 level and on RPO the L4-L5 and L2-L3 levels. No spondylolisthesis or scoliosis. Bones: Five [id number] lumbar vertebral bodies are present. No fractures or bone lesions. Disks: While disk space heights are mostly preserved, there is marked marginal osteophytosis predominately anteriorly. Facets: There is moderate to severe facet arthropathy, most pronounced at L5. Sacroiliac Joints: Unremarkable. Soft Tissues: Aortic calcifications. IMPRESSION: Marked degenerative changes as described. RADIA
--- NOTE | 2019-01-12 11:04 | XRAY Report ---
Reason: LOW BACK PAIN Procedure Date: 01/12/2019 Accession Number: [id number] / [id number] Procedure: XR - Thoracic Spine 3 View CPT Code: FULL RESULT: EXAM: THORACIC SPINE RADIOGRAPHY EXAM DATE: 01/12/2019 08:47 AM. CLINICAL HISTORY: LOW BACK PAIN. COMPARISON: CHEST 2 VIEW 11/18/2018 10:09 PM. TECHNIQUE: 3 views. FINDINGS: Exam mildly limited by motion artifact on the lateral view. Alignment: Normal. No spondylolisthesis or scoliosis. Bones: No fractures or bone lesions. Disks: Disk space heights are generally preserved with note made of flowing anterior osteophytosis, DISH. Soft Tissues: Normal. The visualized lungs and cardiomediastinal silhouette are normal. IMPRESSION: Flowing anterior osteophytosis, DISH. RADIA
== END 2019-01-12 08:25 | disposition home or self-care (01) ==
LOC: DI 08:24
PROVIDERS: ATTEND Family Medicine
DX: M48.07 Spinal stenosis, lumbosacral region (principal); M25.78 Osteophyte, vertebrae; K46.9 Unspecified abdominal hernia without obstruction or gangrene
CPT/HCPCS: 72072; 72110; 76705

== ENCOUNTER 2019-10-16 19:56 | Outpatient (CLI) | payer MEDICARE, MEDICAID | END 2019-10-16 19:57 | disposition EMS.NT | LOC: EMS 19:56 | PROVIDERS: ATTEND Surgery | DX: R53.1 Weakness (principal); R50.9 Fever, unspecified ==

== ENCOUNTER 2019-12-28 17:45 | Outpatient (CLI) | payer MEDICARE, MEDICAID | END 2019-12-28 17:46 | disposition critical access hospital (66) | LOC: EMS 17:45 | PROVIDERS: ATTEND Surgery | DX: R47.81 Slurred speech (principal) | CPT/HCPCS: A0425; A0429 ==

== ENCOUNTER 2019-12-28 18:06 | Emergency (ER) | payer MEDICARE, MEDICAID ==
[2019-12-28] MEDS ORDERED: SODIUM CHLORIDE 0.9% 1,000 ML IV STA ×2 (18:33→23:05)
--- NOTE | 2019-12-28 18:36 | ED Physician Documentation ---
PD HPI FOCAL NEURO - Stated complaint Stated Complaint: STROKE LIKE SYMPTOMS - Chief complaint Chief Complaint: Neuro - History obtained from History obtained from: Patient, Family - History of Present Illness Timing - onset: Enter time (1000), Today Timing - duration: Hours Timing - details: Still present Time of symptom onset unknown: Time of onset unknown Severity of deficit: Moderate Weakness: No: Face, Arm, Hand, Leg, Foot, Right, Left Numbness: No: Face, Arm, Hand, Leg, Foot, Right, Left Associated symptoms: Other (dizziness yesterday). No: Headache, Nausea / vomiting, Seizure, Syncope, Fall, Head injury, Chest pain, Neck pain, Back pain, Fever Contributing factors: negative: Anticoagulated Baseline status: positive: A&OX3, ambulatory, indep Similar symptoms before: Has not had sx before Recently seen: Not recently seen - Additional information Additional information: 84-year-old male had some episodes of dizziness yesterday and was last known to be normal at 2200 last night. The granddaughter notes that at 10:00 this morning she noted his speech to be somewhat slurred and he seemed to be having a harder time initiating his conversation. This is somewhat improved from what it was earlier today but he still has some of this now. She has not noted any weakness. The patient had coronavirus 1 month ago and his spouse of this. Review of Systems Constitutional: denies: Fever, Chills Eyes: denies: Decreased vision Ears: denies: Ear pain Nose: denies: Rhinorrhea / runny nose, Congestion Throat: denies: Sore throat Cardiac: denies: Chest pain / pressure, Palpitations Respiratory: reports: Dyspnea. denies: Cough GI: denies: Abdominal Pain, Nausea, Vomiting : denies: Dysuria, Frequency Skin: denies: Rash Musculoskeletal: denies: Neck pain, Back pain, Extremity pain Neurologic: reports: Difficulty speaking. denies: Generalized weakness, Focal weakness, Numbness, Confused, Altered mental status, Headache, Head injury, LOC PD PAST MEDICAL HISTORY - Past Medical History Past Medical History: Yes Cardiovascular: Hypertension, High cholesterol, Coronary artery disease Respiratory: COPD Neuro: Dementia, CVA, TIA, Headaches, Peripheral neuropathy Endocrine/Autoimmune: None GI: GERD [employer]: None : Renal insuffiency HEENT: Chronic hearing loss Psych: None Musculoskeletal: Osteoarthritis, Osteoporosis, Gout Derm: Psoriasis - Past Surgical History Past Surgical History: No HEENT: Cataracts - Present Medications Home Medications: Ambulatory Orders Medication Instructions Recorded Confirmed Adalimumab [Humira Pen] 40 mg SQ Q14D 05/11/17 12/18/18 allopurinoL [Allopurinol] 300 mg PO DAILY 05/11/17 12/18/18 Aspirin [Aspirin EC] 81 mg PO DAILY 11/19/18 12/18/18 Gabapentin 600 mg PO QPM 11/19/18 12/18/18 Fluticasone [Flonase] 2 sprays ELENI DAILY #1 bottle 12/19/18 Guaifenesin [Mucinex] 600 mg PO BID PRN #60 tab.er.12h 12/19/18 Oxymetazoline HCl [Afrin] 15 ml NS BID 3 Days #1 spray 12/19/18 Tamsulosin [Flomax] 0.4 mg PO DAILY #30 capsule 12/19/18 hydrALAZINE [Apresoline] 10 mg PO TID #90 tablet 12/19/18 - Allergies Allergies/Adverse Reactions: Allergies Allergy/AdvReac Type Severity Reaction Status Date / Time No Known Drug Allergies Allergy Verified 11/18/18 20:55 - Social History Does the pt smoke?: No Smoking Status: Never smoker Does the pt drink ETOH?: Yes Does the pt have substance abuse?: No - Immunizations Immunizations are current?: Yes Immunizations: TDAP current <10years - POLST Patient has POLST: No POLST Status: Full Code PD ED PE NORMAL - Vitals Vital signs reviewed: Yes (Tachypneic and hypertensive) - General General: No acute distress, Well developed/nourished - HEENT HEENT: Atraumatic, PERRL, EOMI - Neck Neck: Supple, no meningeal sign, No bony TTP - Cardiac Cardiac: Other (Tachycardic to 100 sitting up with a 2 out of 6 holosystolic murmur.) - Respiratory Respiratory: Clear bilaterally, Other (Tachypneic at rest with clear bilateral sounds) - Abdomen Abdomen: Soft, Non tender - Back Back: No CVA TTP, No spinal TTP - Derm Derm: Normal color, Warm and dry, No rash - Extremities Extremities: No deformity, No tenderness to palpate, Normal ROM s pain, No edema, No calf tenderness / cord - Neuro Neuro: heel splitter 2-12 intact, No motor deficit, No sensory deficit, Other (The speech according the daughter is halting and slurred.) Eye Opening: Spontaneous Motor: Obeys Commands Verbal: Oriented GCS Score: 15 - Psych Psych: Normal mood, Normal affect NIHSS - Time Time: 18:15 - Level of Consciousness Level of consciousness: (0) Alert, Keenly responsive LOC Questions: (0) Answers both Q's correct LOC Commands: (0) Performs both correctly - Gaze Best Gaze: (0) Normal - Visual Visual: (0) No loss - Facial Palsy Facial Palsy: (0) Normal, symmetrical movement - Motor Arms (both separate) Motor Arm (right): (0) No drift Motor Arm (left): (0) No drift - Motor Legs (both separate) Motor Leg (right): (0) No drift Motor Leg (left): (0) No drift - Limb Ataxia Limb Ataxia: (0) Absent - Sensory Sensory: (0) Normal - Best Language Best Language: (1) [id number] - Dysarthria Dysarthria: (1) [id number] dysarthria - Extinction and Inattention (formally neg Extinction and inattention: (0) No abnormality - Total Score/Results Total Score/Result: 2 Results - Vitals Vitals: Vital Signs - 24 hr 12/28/19 18:07 Temperature 36.9 C Heart Rate 91 Respiratory 26 H Rate Blood Pressure 197/79 H O2 Saturation 100 Oxygen O2 Source [] Room air O2 Source [] Room air O2 Source Room air - EKG (time done) 1817 Rate: Rate (enter#) (72) Rhythm: NSR Intervals: RBBB Compare to prior EKG: Changed from prior EKG ([facility] 12-18-2018 RBBB has developed) Computer interpretation: Agree with computer - Labs Labs: Laboratory Tests 12/28/19 12/28/19 19:00 19:00 WBC 6.7 RBC 2.81 L Hgb 9.8 L Hct 29.9 L MCV 106.4 H MCH 34.9 H MCHC 32.8 RDW 15.9 H Plt Count 132 MPV 11.1 Neut # (Auto) 2.7 Lymph # (Auto) 2.8 [place] # (Auto) 0.8 Eos # (Auto) 0.3 Baso # (Auto) 0.0 Absolute Nucleated RBC 0.00 Nucleated RBC % 0.0 Urine Color YELLOW Urine Clarity CLEAR Urine pH 6.0 Ur Specific [place] 1.015 Urine Protein 100 H Urine Glucose (UA) NEGATIVE Urine Ketones NEGATIVE Urine Occult Blood NEGATIVE Urine Nitrite NEGATIVE Urine Bilirubin NEGATIVE Urine Urobilinogen 0.2 (NORMAL) Ur Leukocyte Esterase NEGATIVE Ur Microscopic Review INDICATED Urine Culture Comments Not Reportable - Rads (name of study) CT head without Radiology: Prelim report reviewed (Impression: No acute intracranial process. Diffuse, scattered nonspecific white matter signal changes, statistically represent chronic microvascular ischemic disease although differential includes neurodegenerative, infectious/inflammatory, demyelinating etiologies among other possibilities.), EMP read indepedently, See rad report Procedures - IVC sono (time) 1836 Bedside IVC sono: IVC measures (cm) (0.71), IVC collapsed c insp (cm) (complete), Dehydration (est 2-3 liter deficit) PD MEDICAL DECISION MAKING - ED course Complexity details: reviewed old records, reviewed results, re-evaluated patient, considered differential, d/w patient, d/w family ED course: 84-year-old male with some dysarthric speech and delay in execution of motor commands is found to be dehydrated on interrogation the inferior vena cava. He is administered normal saline. At the conclusion of my shift his care is turned over to Dr. Kacie Pace.
--- NOTE | 2019-12-28 19:02 | CT Report ---
PROCEDURE: HEAD WO INDICATIONS: stroke like symptoms TECHNIQUE: Noncontrast 4.5 mm thick angled axial sections acquired from the foramen magnum to the vertex. For r adiation dose reduction, the following was used: automated exposure control, adjustment of mA and/or kV according to patient size. COMPARISON: None. FINDINGS: Image quality: Excellent. CSF spaces: Basal cisterns are patent. No extra-axial fluid collections. Ventricles are normal in size and shape. Brain: No midline shift. No intracranial masses or hemorrhage. Murphy-white matter interface is norm al. Diffuse, scattered nonspecific white matter signal changes, statistically represent chronic micro vascular ischemic disease although differential includes neurodegenerative, infectious/inflammatory, demyelinating etiologies among other possibilities. Skull and face: Calvarium and visualized facial bones are intact, without suspicious lesions. Sinuses: Visualized sinuses and mastoids are clear. IMPRESSION: No acute intracranial process. Diffuse, scattered nonspecific white matter signal changes, statistically represent chronic microvasc ular ischemic disease although differential includes neurodegenerative, infectious/inflammatory, demy elinating etiologies among other possibilities. Reviewed by: Jarek Alberto MD on 12/28/2019 7:00 PM PDT Approved by: Jarek Alberto MD on 12/28/2019 7:00 PM PDT Station ID: [id number]
[2019-12-28 19:19] LABS: BASOPHILS % (AUTO) 0.6 %; EOSINOPHILS # (AUTO) 0.3 10^3/uL (0.0-0.7); EOSINOPHILS % (AUTO) 3.7 %; HGB - HEMOGLOBIN 9.8 g/dL (14.0-18.0); LYMPHOCYTES # (AUTO) 2.8 10^3/uL (1.5-3.5); LYMPHOCYTES % (AUTO) 41.7 %; MEAN CORPUSCULAR HEMOGLOBIN 34.9 pg (27.0-31.0); MEAN CORPUSCULAR HGB CONC 32.8 g/dL (32.0-36.0); MEAN CORPUSCULAR VOLUME 106.4 fL (80.0-94.0); MEAN PLATELET VOLUME 11.1 fL (7.4-11.4); MONOCYTES # (AUTO) 0.8 10^3/uL (0.0-1.0); MONOCYTES % (AUTO) 12.1 %; NEUTROPHILS # (AUTO) 2.7 10^3/uL (1.5-6.6); PLT - PLATELET COUNT 132 10^3/uL (130-450); RED BLOOD COUNT 2.81 10^6/uL (4.70-6.10); RED CELL DISTRIBUTION WIDTH 15.9 % (12.0-15.0); WHITE BLOOD COUNT 6.7 x10^3/uL (4.8-10.8)
[2019-12-28 19:24] LABS: BILIRUBIN,URINE NEGATIVE (NEGATIVE); GLUCOSE, URINE (UA) NEGATIVE (NEGATIVE); KETONES,URINE (UA) NEGATIVE (NEGATIVE); LEUKOCYTE ESTERASE, URINE NEGATIVE (NEGATIVE); NITRITE,URINE NEGATIVE (NEGATIVE); OCCULT BLOOD,URINE NEGATIVE (NEGATIVE); PROTEIN,URINE 100 mg/dL (NEGATIVE); UROBILINOGEN,URINE 0.2 (NORMAL) E.U./dL (NORMAL)
[2019-12-28 19:26] LABS: CLARITY,URINE CLEAR (CLEAR)
[2019-12-28 19:43] LABS: BACTERIA,URINE None Seen /HPF (None Seen); RBC,URINE None Seen /HPF (0-5); SQUAMOUS EPITHELIAL CELL,UR RARE Squamous (<= Few)
[2019-12-28 19:44] LABS: ALBUMIN 3.5 g/dL (3.2-5.5); ALBUMIN/GLOBULIN RATIO 0.8 (1.0-2.2); BILIRUBIN,TOTAL 0.7 mg/dL (0.2-1.0); CALCIUM 8.8 mg/dL (8.5-10.3); CREATININE 2.8 mg/dL (0.6-1.2); TOTAL PROTEIN 7.7 g/dL (6.7-8.2)
[2019-12-29 00:18] LABS: CALCIUM 8.2 mg/dL (8.5-10.3); CREATININE 2.5 mg/dL (0.6-1.2)
[2019-12-29 00:48] VITALS: BP 174/79
== END 2019-12-29 01:04 | disposition home or self-care (01) ==
LOC: EDUNIT# → ED 18:06
DX: E86.0 Dehydration (principal); G93.89 Other specified disorders of brain
CPT/HCPCS: 36415; 70450; 80048; 80053; 81001; 81003; 83605; 83690; 85025; 87086; 93005; 96360; 96361; 99284